=== PATIENT | female | born 1950 | race American Indian/Alaskan Native ===

== ENCOUNTER 2016-11-05 22:28 | Observation (INO) | payer MEDICARE, OTHER ==
[2016-11-05 22:42] VITALS: BMI 21.9
--- NOTE | 2016-11-05 23:21 | ED PDOC ---
Arrival/HPI - General Chief Complaint: Chest Pain Time Seen by Provider: 11/05/16 22:37 Historian: Patient - History of Present Illness Narrative History of Present Illness (Text): 11/05/16 23:17 Aidee Streeter is a 66 year old female with a history of COPD, hypertension, CAD with stents, osteoporosis, cholecystectomy, gastritis and degenerative joint disease, present to the emergency department via ambulance for evaluation of chest pain. En route patient was given baby aspirin for chest pain. Patient also had 1 episode of nbnb vomiting. Denies any fever, chills, headache, dizziness, shortness of breath, abdominal pain, diarrhea, or any other complaints at this time. Symptom Onset: Gradual Symptom Course: Unchanged Severity Level: Mild Activities at Onset: Light Past Medical History - Provider Review Nursing Documentation Reviewed: Yes - Infectious Disease Hx of Infectious Diseases: None - Tetanus Immunization Tetanus Immunization: Unknown - Cardiac Hx [place]: Yes (X2) - Pulmonary Hx Chronic Obstructive Pulmonary Disease (COPD): Yes Hx Sleep Apnea: Yes Other/Comment: Bi-pap at night - Neurological Hx Paralysis: No - HEENT Hx HEENT Disorder: No - Renal Hx Renal Disorder: No - Endocrine/Metabolic Hx Endocrine Disorders: No - Hematological/Oncological Hx Blood Transfusions: No - Integumentary Hx Dermatological Disorder: No - Musculoskeletal/Rheumatological Hx Arthritis: Yes Hx Unsteady Gait: Yes - Gastrointestinal Hx Gastrointestinal Disorders: No - Genitourinary/Gynecological Hx Genitourinary Disorders: No - Psychiatric Hx Emotional Abuse: No Hx Physical Abuse: No Hx Substance Use: No - Surgical History Hx Cardiac Catheterization: Yes (X1) - Anesthesia Hx Anesthesia: No Hx Anesthesia Reactions: No Hx Malignant Hyperthermia: No - Suicidal Assessment Feels Threatened In Home Enviroment: No Family/Social History - Physician Review Nursing Documentation Reviewed: Yes Family/Social History: No Known Family HX Smoking Status: Light Smoker < 10 Cigarettes Daily Hx Alcohol Use: No (RARE) Hx Substance Use: No Hx Substance Use Treatment: No Allergies/Home Meds Allergies/Adverse Reactions: Allergies oxycodone Allergy (Verified 03/11/16 09:34) DIZZINESS shellfish derived Allergy (Verified 03/11/16 09:34) ITCHING mri contrast Allergy (Severe, Uncoded 03/11/16 09:34) RASH DEVELOPES HIVES AND MAY FAINT Home Medications: Home Meds Medication Instructions Recorded Confirmed amLODIPine [Norvasc] 10 mg PO DAILY 12/20/14 11/05/16 Rosuvastatin Calcium [Crestor] 20 mg PO DAILY 11/05/16 11/05/16 Review of Systems - Physician Review All systems were reviewed & negative as marked: Yes - Review of Systems Constitutional: Normal. absent: Fatigue, Fevers Respiratory: Normal. absent: SOB, Cough, Sputum Cardiovascular: Chest Pain. absent: Palpitations Gastrointestinal: Nausea, Vomiting. absent: Diarrhea Genitourinary Female: Normal Neurological: Normal. absent: Headache, Dizziness Psychiatric: Normal Physical Exam Vital Signs Reviewed: Yes Vital Signs Temp Pulse Resp BP Pulse Ox 11/06/16 02:41 70 18 131/71 97 11/06/16 01:35 86 18 143/85 100 11/06/16 00:40 88 20 158/92 H 98 11/05/16 23:40 65 20 116/65 95 11/05/16 22:45 97.8 F 80 20 152/81 H 98 Temperature: Afebrile Blood Pressure: Normal Pulse: Regular Respiratory Rate: Normal Appearance: Positive for: Well-Appearing, Non-Toxic, Comfortable Pain Distress: None Mental Status: Positive for: Alert and Oriented X 3 - Systems Exam Head: Present: Atraumatic, Normocephalic Pupils: Present: PERRL Conjunctiva: Present: Normal Mouth: Present: Moist Mucous Membranes Respiratory/Chest: Present: Rhonchi. No: Respiratory Distress, Accessory Muscle Use Cardiovascular: Present: Regular Rate and Rhythm, Normal S1, S2. No: Murmurs Abdomen: Present: Normal Bowel Sounds. No: Tenderness, Distention, Peritoneal Signs Upper Extremity: Present: Normal Inspection. No: Cyanosis, Edema Lower Extremity: Present: Normal Inspection. No: Edema Neurological: Present: GCS=15, CN II-XII Intact, Speech Normal, Motor Func Grossly Intact, Normal Sensory Function Skin: Present: Warm, Dry, Normal Color. No: Rashes Psychiatric: Present: Alert, Oriented x 3, Normal Insight, Normal Concentration Medical Decision Making ED Course and Treatment: 11/05/16 23:22 Impression: A 66 year old female who presents to the emergency department complaining of chest pain, nausea and vomiting. Plan: -- EKG -- Labs, cardiac enzymes -- Chest X-ray -- Zofran -- Urinalysis -- Reassess and disposition Progress Notes: 11/05/16 23:22 EKG reviewed by me: Sinus Tachycardia @ 102 bpm. Septal infarct, age undetermined. 11/06/16 02:[address] Brown who is aware and agrees with the plan to observe patient at telemetry for chest pain. Accepts patient under his service. - Lab Interpretations Lab Results: 11/05/16 23:05 11/05/16 23:05 Lab Results 11/05/16 23:05: Sodium 142, Potassium 3.2 L, Chloride 109 H, Carbon Dioxide 23, Anion Gap 13, BUN 22 H, Creatinine 2.5 H, Est GFR ( Amer) 23, Est GFR ( Non-Af Amer) 19, Random Glucose 147 H, Calcium 8.9, Magnesium 1.9, Total Bilirubin 0.4, AST 29, ALT 22, Alkaline Phosphatase 70, Lactate Dehydrogenase 304 L, Total Creatine Kinase 116, Troponin I < 0.01, NT-Pro-B Natriuret Pep 151 , Total Protein 7.0, Albumin 3.6, Globulin 3.3, Albumin/Globulin Ratio 1.1 11/05/16 23:05: WBC 8.9 D, RBC 4.16, Hgb 11.1 L, Hct 34.7 L, MCV 83.4, MCH 26.7 , MCHC 32.0, RDW 14.6 H, Plt Count 252, MPV 9.3, Gran % 60.8, Lymph % (Auto) 33.3, Rankin % (Auto) 4.9, Eos % (Auto) 0.9 L, Baso % (Auto) 0.1, Gran # 5.42, Lymph # 3.0, Rankin # 0.4, Eos # 0.1, Baso # 0.01 I have reviewed the lab results: Yes - RAD Interpretation Radiology Orders: 11/05/16 23:01 CHEST PORTABLE [RAD] Stat - EKG Interpretation Interpreted by ED Physician: Yes Type: 12 lead EKG - Medication Orders Current Medication Orders: Discontinued Medications Albuterol/Ipratropium (Duoneb 3 Mg/0.5 Mg (3 Ml) Ud) 3 ml IH STAT STA Stop: 11/06/16 01:09 Last Admin: 11/06/16 01:35 Dose: 3 ml Albuterol/Ipratropium (Duoneb 3 Mg/0.5 Mg (3 Ml) Ud) 3 ml IH [id number] [facility] Last Admin: 11/07/16 14:11 Dose: Aspirin (Ecotrin) 325 mg PO DAILY [facility] Last Admin: 11/07/16 11:32 Dose: 325 mg Fentanyl (Fentanyl) Confirm Administered Dose 100 mcg .ROUTE .STK-MED ONE Stop: 11/07/16 10:20 Heparin Sodium (Porcine) (Heparin) 5,000 units SC Q8 [facility] PRN Reason: Protocol Last Admin: 11/07/16 13:54 Dose: Cefepime HCl (Maxipime 1gm) 1 gm in 100 mls @ 100 mls/hr IVPB Q24H [facility] PRN Reason: Protocol Last Admin: 11/07/16 07:53 Dose: 100 mls/hr Sodium Chloride (Sodium Chloride 0.9%) 1,000 mls @ 100 mls/hr IV .Q10H [facility] Last Admin: 11/07/16 11:30 Dose: 100 mls/hr Lidocaine (Lidocaine (Bolus)) Confirm Administered Dose 100 mg .ROUTE .STK-MED ONE Stop: 11/07/16 10:21 Metoprolol Tartrate (Lopressor) 25 mg PO BRKDIN [facility] Last Admin: 11/06/16 07:54 Dose: 25 mg Metoprolol Tartrate (Lopressor) 25 mg PO DAILY [facility] Last Admin: 11/07/16 11:31 Dose: 25 mg Nicotine (Nicoderm Cq) 1 patch TD DAILY [facility] Nicotine (Nicoderm Cq) 1 patch TD DAILY [facility] Last Admin: 11/07/16 11:31 Dose: 1 patch Ondansetron HCl (Zofran Inj) 4 mg IVP STAT STA Stop: 11/05/16 23:03 Last Admin: 11/05/16 23:17 Dose: 4 mg Ondansetron HCl (Zofran Inj) 4 mg IVP Q4H PRN PRN Reason: Nausea/Vomiting Pantoprazole Sodium (Protonix Ec Tab) 20 mg PO 0600 [facility] Stop: 11/10/16 06:01 Pantoprazole Sodium (Protonix Ec Tab) 40 mg PO 0600,1600 [facility] Last Admin: 11/07/16 05:51 Dose: 40 mg Potassium Chloride (K-Dur 20 Meq Er Tab) 40 meq PO STAT STA Stop: 11/06/16 02:43 Last Admin: 11/06/16 03:07 Dose: 40 meq Propofol (Diprivan) Confirm Administered Dose 200 mg .ROUTE .STK-MED ONE Stop: 11/07/16 10:20 - Scribe Statement The provider has reviewed the documentation as recorded by the Lorenibgina Xavier Provider Attestation: Provider Scribe Attestation: All medical record entries made by the Scribe were at my direction and personally dictated by me. I have reviewed the chart and agree that the record accurately reflects my personal performance of the history, physical exam, medical decision making, and the department course for this patient. I have also personally directed, reviewed, and agree with the discharge instructions and disposition. Disposition/Present on Arrival - Present on Arrival Any Indicators Present on Arrival: No History of DVT/PE: No History of Uncontrolled Diabetes: No Urinary Catheter: No History of Decub. Ulcer: No History Surgical Site Infection Following: None - Disposition Have Diagnosis and Disposition been Completed?: Yes Diagnosis: Chest pain, Chronic obstructive airway disease Disposition: HOSPITALIZED Disposition Time: 02:00 Condition: GOOD
[2016-11-05 23:30] LABS: ALB/GLOB RATIO 1.1 (1.1-1.8); ALBUMIN 3.6 g/dL (3.0-4.8); ALT/SGPT 22 U/L (7-56); AST/SGOT 29 U/L (15-39); BLOOD UREA NITROGEN 22 mg/dL (7-21); CALCIUM 8.9 mg/dL (8.4-10.5); GFR AFRICAN-AMERICAN 23; GFR NON-AFRICAN AMERICAN 19; MAGNESIUM 1.9 mg/dL (1.7-2.2)
[2016-11-05 23:41] LABS: B-TYPE NATRIURETIC PEPTIDE 151 pg/mL (0-450)
[2016-11-05 23:57] LABS: BASO # 0.01 K/mm3 (0.0-2.0); BASO % 0.1 % (0.0-3.0); EOS # 0.1 (0.0-0.7); EOS % 0.9 % (1.5-5.0); GRAN # 5.42 (1.4-6.5); GRAN % 60.8 % (50.0-68.0); HEMOGLOBIN 11.1 gm/dL (12.0-16.0); LYMPH % 33.3 % (22.0-35.0); MEAN CELL VOLUME 83.4 fL (80.0-105.0); MEAN CORPUSCULAR HEMOGLOBIN 26.7 pg (25.0-35.0); MEAN PLATELET VOLUME 9.3 fl (7.0-11.0); MONO # 0.4 (0.1-0.6); MONO % 4.9 % (1.0-6.0); PLATELET COUNT 252 10^3/uL (120.0-450.0); RBC 4.16 10^6/uL (3.5-6.1); RED CELL DISTRIBUTION WIDTH 14.6 % (11.5-14.5); WHITE BLOOD COUNT 8.9 10^3/ul (4.5-11.0)
[2016-11-06 00:12] LABS: TROPONIN I < 0.01 ng/mL
[2016-11-06] MEDS ORDERED: Albuterol-Ipratrop 3 mg / 0.5 (3 ml) UD IH STA (01:08)
[2016-11-06 02:30] LABS: PH,URINE 6.5 (4.7-8.0); URINE BILIRUBIN NEGATIVE (NEGATIVE); URINE BLOOD TRACE-INTACT (NEGATIVE); URINE GLUCOSE (UA) NEGATIVE (NEGATIVE); URINE LEUKOCYTE ESTERASE MODERATE Leu/uL (NEGATIVE); URINE NITRATE POSITIVE (NEGATIVE); URINE PROTEIN TRACE mg/dL (<30 mg/dL); URINE UROBILINOGEN 0.2 E.U./dL (<1 E.U./dL)
[2016-11-06 02:33] LABS: URINE APPEARANCE SL CLOUDY (CLEAR); URINE COLOR YELLOW (YELLOW)
[2016-11-06] MEDS ORDERED: Potassium Chloride 20 mEq ER Tab PO STA (02:42)
[2016-11-06 02:46] LABS: URINE BACTERIA MANY (NEG); URINE EPITHELIAL CELLS 0 - 2 /hpf (0-5); URINE RBC 0 - 2 /hpf (0-2); URINE WBC TNTC /hpf (0-6)
--- NOTE | 2016-11-06 05:15 | CP.PCM.HP ---
<Daniel Montaño - Last Filed: 11/06/16 05:17> History of Present Illness - History of Present Illness History of Present Illness: Daniel Montaño DO PGY-1 CC: Chest and Epigastric Pain HPI: Ms. Streeter is a 66 y/o AA female with a pertinent PMHx of HTN, CAD and HLD who presented with a complaint of epigastric pain radiating into her chest. Ms. Streeter stated that starting 11/04, she had a bout of nbnb emesis right after eating, after which she also experienced a throbbing epigastric pain of 8/ 10 intensity without radiation. On 11/05, Ms. Streeter had another bout of nbnb emesis right after eating at 7:30 PM, with the same throbbing epigastric pain, but this time it was of 10/10 intensity and radiated to her chest bilaterally. Ms Streeter stated that this had never happened before and that nothing at home made the pain better or worse. She was transported to the ED via EMS and was given ASA on the way. Ms. Streeter denied fevers, chills, diarrhea, change in appetite, and sob, but did admit to a cough. Ms. Streeter had no further complaints. PMHx: HTN, CAD, HLD, COPD, Thyroid Lumps, TANA, Osteoporosis, Osteoarthritis, Seizure Disorder, CKD, Right Middle Lobe Nodule PSHx: Stents, Cholecystectomy, Thyroid Bx, Hysterectomy Allergies: Oxycodone, Shellfish, MRI Contrast SocHx: Occasional EtOH; Heavy Tobacco; Denies illicits FamHx: Unavailable Meds: Non compliant Present on Admission - Present on Admission Any Indicators Present on Admission: No Review of Systems - Review of Systems Review of Systems: ROS: Constitutional: pt denies fever, chills, generalized weakness Head: pt denies lesions, headache ENT: pt denies dysphagia, ofalgia, hearing deficit, rhinorrhea Eyes: pt denies sudden loss of vision, diplopia, blurred vision MSK: pt denies joint pain, extremity cramping, muscle stiffness, muscle weakness Cardio: +pt admits b/l cp; pt denies sob, dvt Pulm: pt denies cough, hemoptysis, wheeze GI: +pt admits vomiting, epigastric pain; pt denies loss of appetite, constipation, melena, diarrhea : pt denies burning on urination, urinary frequency, hematuria, urinary urgency Neuro: pt denies paresis, paresthesia, dizziness, barnard, numbness, tingling Derm: pt denies skin changes, lesions, nail changes Endo: pt denies intolerance to heat/cold, diaphoresis, night sweats, polydipsia Psych: pt denies anxiety, depression, mood changes Past Patient History - Infectious Disease Hx of Infectious Diseases: None - Tetanus Immunizations Tetanus Immunization: Unknown - Past Social History Smoking Status: Light Smoker < 10 Cigarettes Daily - CARDIAC Hx Cardiac Disorders: Yes Hx Hypercholesterolemia: Yes Hx Hypertension: Yes - PULMONARY Hx Respiratory Disorders: Yes Hx Chronic Obstructive Pulmonary Disease (COPD): Yes Hx Sleep Apnea: Yes (CPAP HS) - NEUROLOGICAL Hx Neurological Disorder: Yes Hx Seizures: Yes - HEENT Hx HEENT Problems: No - RENAL Hx Chronic Kidney Disease: Yes - ENDOCRINE/METABOLIC Hx Endocrine Disorders: Yes (Thyroid nodules) - HEMATOLOGICAL/ONCOLOGICAL Hx Blood Disorders: Yes Hx Anemia: Yes - INTEGUMENTARY Hx Dermatological Problems: No - MUSCULOSKELETAL/RHEUMATOLOGICAL Hx Musculoskeletal Disorders: Yes Hx Degenerative Joint Disease: Yes Hx Falls: No Hx Osteoarthritis: Yes Hx Unsteady Gait: Yes - GASTROINTESTINAL Hx Gastrointestinal Disorders: Yes (gastritis, esophagitis) Hx Gastroesophageal Reflux: Yes - GENITOURINARY/GYNECOLOGICAL Hx Genitourinary Disorders: Yes Hx Incontinence: Yes Hx Urinary Tract Infection: Yes - PSYCHIATRIC Hx Psychophysiologic Disorder: No Hx Substance Use: No - SURGICAL HISTORY Hx Surgeries: Yes Hx Cardiac Catheterization: Yes Hx Cholecystectomy: Yes Hx Coronary Stent: Yes Hx Hysterectomy: Yes Hx Orthopedic Surgery: Yes (L shoulder surgery) Other/Comment: cyst removed from back - ANESTHESIA Hx Anesthesia: No Hx Anesthesia Reactions: No Hx Malignant Hyperthermia: No Meds Home Medications: Home Medication List Medication Instructions Recorded Confirmed Type Pantoprazole [Protonix EC Tab] 40 mg PO 0600,1600 #60 ect 11/07/16 Rx Allergies/Adverse Reactions: Allergies Allergy/AdvReac Type Severity Reaction Status Date / Time oxycodone Allergy DIZZINESS Verified 03/11/16 09:34 shellfish derived Allergy ITCHING Verified 03/11/16 09:34 mri contrast Allergy Severe RASH Uncoded 03/11/16 09:34 Physical Exam - Additional Findings Additional findings: Physical Exam: VS: As above Constitutional: well appearing female, a&o x 4, nad Head and Neck: +TTP around thyroid; thyroid nodules; no jvd, trachea midline, carotid midline, no cervical/head mass, no lesions Eyes: conrad, nonicteric sclera, eom intact ENT: auditory acuity grossly intact, throat not congested, no nasal deformity Cardio: rrr, no m/r/g, no carotid bruit, nml s1, s2 Pulm: +scattered wheezes; no accessory muscle use, equal nml breath sounds bilaterally, no RR Abd: s/nt/nd, nbs x 4 q, no palpable masses Derm: no rashes, no ulcers, no lesions Extr: no edema, no cyanosis, no calf tenderness, no lesions, no varicosities Neuro: cn II-XII grossly intact, ue and le 3+ muscle strength bilaterally, no los ue, le bilaterally and core Results - Vital Signs Recent Vital Signs: Last Vital Signs Temp 98.4 F 11/06/16 03:42 Pulse 57 L 11/06/16 05:01 Resp 18 11/06/16 04:42 BP 142/76 11/06/16 03:42 Pulse Ox 97 11/06/16 02:41 - Labs Result Diagrams: 11/05/16 23:05 11/05/16 23:05 Labs: Laboratory Results - last 24 hr 11/06/16 01:50 Urine Color Yellow Urine Appearance Sl cloudy Urine pH 6.5 Ur Specific Garretson 1.010 Urine Protein Trace H Urine Glucose (UA) Negative Urine Ketones Negative Urine Blood Trace-intact H Urine Nitrate Positive H Urine Bilirubin Negative Urine Urobilinogen 0.2 Ur Leukocyte Esterase Moderate H Urine RBC 0 - 2 Urine WBC Tntc Ur Epithelial Cells 0 - 2 Urine Bacteria Many Assessment & Plan - Assessment and Plan (Free Text) Assessment: A/P: Ms. Streeter is a 66 y/o AA female with a PMHx 1.) Chest pain, likely 2/2 radiation from abdomen - EKG shows sinus tachycardia and age indeterminate septal infarct - Patient denies sob - Trend tropes; Trope 1 negative - Trend CK-MB - CXR ordered 2.) Epigastric pain, possibly 2/2 Acute gastroenteritis VS Acute on Chronic Gastritis VS Acute on Chronic Esophagitis VS Hepatitis VS Pancreatitis VS PUD VS GERD VS SBO (unlikely) VS Unknown Etiology - Order Lipase - EGD, pending Dr. Brown's approval - Pt given Zofran in ED 3.) Hypokalemia likely 2/2 Emesis VS ODIN - K+ 3.2 - Cr 2.5 - Pt given 40 mEq in ED - Replace PRN 4.) Possible urinary tract infection - Pending urine cultures - Leukocyte Esterase Moderate - Urine Bacteria Many - Afebrile, VSS 5.) Hx/O Anemia - Hb 11.1, HCT 34.7 6.) Hx/O CKD - Cr 2.5 7.) DVT PPHXS - SCD 8.) GI PPHXS - Protonix <Chris Brown U - Last Filed: 11/21/16 09:56> Results - Vital Signs Recent Vital Signs: Last Vital Signs Temp 98.2 F 11/06/16 05:53 Pulse 74 11/06/16 05:53 Resp 19 11/06/16 05:53 BP 147/86 11/06/16 05:53 Pulse Ox 98 11/06/16 05:53 - Labs Result Diagrams: 11/07/16 08:20 11/07/16 08:20 Labs: Laboratory Results - last 24 hr 11/06/16 01:50 Urine Color Yellow Urine Appearance Sl cloudy Urine pH 6.5 Ur Specific Garretson 1.010 Urine Protein Trace H Urine Glucose (UA) Negative Urine Ketones Negative Urine Blood Trace-intact H Urine Nitrate Positive H Urine Bilirubin Negative Urine Urobilinogen 0.2 Ur Leukocyte Esterase Moderate H Urine RBC 0 - 2 Urine WBC Tntc Ur Epithelial Cells 0 - 2 Urine Bacteria Many Assessment & Plan - Assessment and Plan (Free Text) Assessment: PATIENT SEEN AND EXAMINED IN ROOM 275-2 RESIDENT'S H&P REVIEWED A/P: CP ETIOLOGY UNDETERMINED HX CAD, PCI ?GERD VS GASTRITIS HYPOKALEMIA CKD 4 HTN NICOTINE ADDICTION ANEMIA ?UTI WITH PROTEINURIA, PYURIA, HEMATURIA, BACTEURIA SINUS TACHYCARDIA HYPERGLYCEMIA PRE-DIABETES BRADYCARDIA THYROMEAGLY DIVERTICULOSIS COLON. CARDIO/GI EVAL PENDING. PLAN PER ORDERS. ALL DETAILS EXPLAINED TO PATIENT Attending/Attestation - Attestation I have personally seen and examined this patient.: Yes I have fully participated in the care of the patient.: Yes I have reviewed all pertinent clinical information: Yes
[2016-11-06] MEDS ORDERED: Pantoprazole 20 mg EC Tab PO SCH (06:00)
[2016-11-06] MEDS: Cefepime 1gm in NS 100ml 1 GM/100 ML BAG IVPB SCH (06:04)
[2016-11-06] MEDS: Pantoprazole 40 mg EC Tab PO SCH ×2 (06:09→17:26)
[2016-11-06 06:14] LABS: BASO # 0.01 K/mm3 (0.0-2.0); BASO % 0.1 % (0.0-3.0); EOS # 0.1 (0.0-0.7); EOS % 0.8 % (1.5-5.0); GRAN # 5.07 (1.4-6.5); GRAN % 58.2 % (50.0-68.0); HEMOGLOBIN 11.2 gm/dL (12.0-16.0); LYMPH # 3.2 (1.2-3.4); LYMPH % 36.8 % (22.0-35.0); MEAN CELL VOLUME 84.1 fL (80.0-105.0); MEAN CORPUSCULAR HEMOGLOBIN 26.5 pg (25.0-35.0); MEAN CORPUSCULAR HGB CONC 31.5 g/dl (31.0-37.0); MEAN PLATELET VOLUME 8.6 fl (7.0-11.0); MONO # 0.4 (0.1-0.6); MONO % 4.1 % (1.0-6.0); PLATELET COUNT 227 10^3/uL (120.0-450.0); RBC 4.22 10^6/uL (3.5-6.1); RED CELL DISTRIBUTION WIDTH 14.6 % (11.5-14.5); WHITE BLOOD COUNT 8.7 10^3/ul (4.5-11.0)
[2016-11-06 06:19] LABS: INR 1.01 (0.93-1.08); PARTIAL THROMBOPLASTIN TIME 29.5 Seconds (23.7-30.8); PROTHROMBIN TIME 10.9 Seconds (9.9-11.8)
[2016-11-06 06:37] LABS: ALB/GLOB RATIO 1.1 (1.1-1.8); ALBUMIN 3.6 g/dL (3.0-4.8)
[2016-11-06 06:39] LABS: D DIMER 0.35 mg/L FEU (0-0.50)
[2016-11-06 06:47] LABS: TROPONIN I 0.02 ng/mL
[2016-11-06 07:04] LABS: FREE T4 1.02 ng/dL (0.78-2.19); T4 6.6 ug/dL (5.5-11.0)
--- NOTE | 2016-11-06 07:41 | RAD ---
HISTORY: cp COMPARISON: 05/13/2016 FINDINGS: LUNGS: No active pulmonary disease. PLEURA: No significant pleural effusion identified, no pneumothorax apparent. CARDIOVASCULAR: Normal. OSSEOUS STRUCTURES: No significant abnormalities. VISUALIZED UPPER ABDOMEN: Normal. OTHER FINDINGS: None. IMPRESSION: No active disease.
[2016-11-06 07:55] LABS: BARBITURATES, UR NEGATIVE (NEGATIVE); BENZODIAZEPINES, UR NEGATIVE (NEGATIVE); OPIATES, UR NEGATIVE (NEGATIVE); PHENCYCLIDINE, UR NEGATIVE (NEGATIVE)
[2016-11-06] MEDS: Albuterol-Ipratrop 3 mg / 0.5 (3 ml) UD IH SCH ×3 (08:16→20:32)
--- NOTE | 2016-11-06 10:12 | CT ---
PROCEDURE: CT Chest, Abdomen and Pelvis without intravenous contrast HISTORY: ABD PAIN/?UTI COMPARISON: None. TECHNIQUE: Radiation dose: Total exam DLP = 413 mGy-cm. This CT exam was performed using one or more of the following dose reduction techniques: Automated exposure control, adjustment of the mA and/or kV according to patient size, and/or use of iterative reconstruction technique. FINDINGS: CT CHEST WITHOUT CONTRAST: LUNGS: Clear. No nodule, mass or consolidation. There is some linear atelectasis or scarring in both lung bases MEDIASTINUM: Unremarkable. Normal caliber aorta and pulmonary arterial trunk. Normal size heart. LYMPH NODES: Unremarkable. PLEURA: Unremarkable. No pneumothorax. No pleural fluid. BONES: Unremarkable. OTHER FINDINGS: There is diffuse enlargement of the thyroid CT ABDOMEN AND PELVIS: LIVER: Unremarkable. No gross lesion or ductal dilatation. GALLBLADDER AND BILE DUCTS: Gallbladder removed PANCREAS: Unremarkable. No gross lesion or ductal dilatation. SPLEEN: Unremarkable. ADRENALS: Unremarkable. No mass. KIDNEYS AND URETERS: Unremarkable. No hydronephrosis. No solid mass. VASCULATURE: Unremarkable. No aortic aneurysm. BOWEL: Unremarkable. No obstruction. No gross mural thickening. There is diverticulosis throughout the colon. APPENDIX: Normal appendix. PERITONEUM: Unremarkable. No free fluid. No free air. LYMPH NODES: Unremarkable. No enlarged lymph nodes. BLADDER: Unremarkable. REPRODUCTIVE: Unremarkable. BONES: No acute fracture. OTHER FINDINGS: None. IMPRESSION: Diffuse diverticulosis of the colon without evidence of diverticulitis. Moderate diffuse enlargement of the thyroid
[2016-11-06] MEDS: Aspirin 325 mg EC Tablets PO SCH (10:26)
--- NOTE | 2016-11-06 12:30 | CARD ---
APPROVED REPORT EKG Measurement Heart [id number] <Conclusion> Sinus bradycardia Otherwise normal ECG
--- NOTE | 2016-11-06 12:40 | CARD ---
APPROVED REPORT EKG Measurement Heart [id number] <Conclusion> Sinus tachycardia Septal infarct, age undetermined Abnormal ECG
[2016-11-06 13:22] LABS: TROPONIN I < 0.01 ng/mL
--- NOTE | 2016-11-06 19:35 | US ---
HISTORY: Leg pain and swelling. Evaluate for DVT PHYSICIAN(S): Vidal Jameson MD. TECHNIQUE: Duplex sonography and color-flow Doppler with graded compression were used to evaluate the deep venous systems of both lower extremities. FINDINGS: The visualized deep venous systems of both lower extremities are sonographically normal and compressible. Normal wave forms and augmentation are seen. There is no sonographic evidence for deep venous thrombosis in the visualized segments of both lower extremities. IMPRESSION: No sonographic evidence for deep venous thrombosis in the visualized segments of both lower extremities.
[2016-11-07] MEDS: Albuterol-Ipratrop 3 mg / 0.5 (3 ml) UD IH SCH ×3 (01:47→14:11)
[2016-11-07] MEDS: Pantoprazole 40 mg EC Tab PO SCH (05:51)
[2016-11-07] MEDS: Cefepime 1gm in NS 100ml 1 GM/100 ML BAG IVPB SCH (07:53)
[2016-11-07 08:41] LABS: BASO # 0.01 K/mm3 (0.0-2.0); BASO % 0.1 % (0.0-3.0); EOS # 0.1 (0.0-0.7); EOS % 0.6 % (1.5-5.0); GRAN # 4.67 (1.4-6.5); GRAN % 57.1 % (50.0-68.0); HEMOGLOBIN 11.2 gm/dL (12.0-16.0); LYMPH # 3.1 (1.2-3.4); LYMPH % 38.4 % (22.0-35.0); MEAN CELL VOLUME 84.9 fL (80.0-105.0); MEAN CORPUSCULAR HEMOGLOBIN 26.8 pg (25.0-35.0); MEAN CORPUSCULAR HGB CONC 31.5 g/dl (31.0-37.0); MONO # 0.3 (0.1-0.6); MONO % 3.8 % (1.0-6.0); PLATELET COUNT 218 10^3/uL (120.0-450.0); RBC 4.18 10^6/uL (3.5-6.1); RED CELL DISTRIBUTION WIDTH 14.6 % (11.5-14.5); WHITE BLOOD COUNT 8.2 10^3/ul (4.5-11.0)
[2016-11-07 09:04] VITALS: O2SAT 99
[2016-11-07 09:06] LABS: ALB/GLOB RATIO 1.1 (1.1-1.8); ALBUMIN 3.7 g/dL (3.0-4.8); BILIRUBIN,DIRECT 0.4 mg/dL (0.0-0.4); CALCIUM 9.1 mg/dL (8.4-10.5); MAGNESIUM 1.9 mg/dL (1.7-2.2); URIC ACID 3.9 mg/dL (2.5-6.2)
[2016-11-07] MEDS: Aspirin 325 mg EC Tablets PO SCH ×2 (09:32→11:32)
--- NOTE | 2016-11-07 09:32 | CP.PCM.PN ---
<Magdiel Duran - Last Filed: 11/07/16 13:28> Subjective - Date & Time of Evaluation Date of Evaluation: 11/07/16 Time of Evaluation: 07:45 - Subjective Subjective: Patient seen and examined at bedside. Patient was seen ambulating without overt difficulty. States that she has been experiencing productive cough for several months. Continues to experience epigastric discomfort which radiates bilaterally to her back at the T9 level. Offers no new complaints at this time. Denies fever, chills, dizziness, SOB, N/V, diarrhea, constipation, and urinary symptoms. Objective - Vital Signs/Intake and Output Vital Signs (last 24 hours): Temp Pulse Resp BP Pulse Ox 98.4 F 62 18 129/71 99 11/07/16 06:00 11/07/16 08:30 11/07/16 08:30 11/07/16 08:30 11/07/16 08:30 Intake and Output: 11/07/16 11/07/16 06:59 18:59 Intake Total 240 Output Total 0 Balance 240 - Medications Medications: Current Medications Albuterol/Ipratropium (Duoneb 3 Mg/0.5 Mg (3 Ml) Ud) 3 ml IH [id number] [facility] Last Admin: 11/07/16 07:44 Dose: 3 ml Aspirin (Ecotrin) 325 mg PO DAILY [facility] Last Admin: 11/06/16 10:26 Dose: 325 mg Heparin Sodium (Porcine) (Heparin) 5,000 units SC Q8 [facility] PRN Reason: Protocol Last Admin: 11/07/16 05:50 Dose: 5,000 units Cefepime HCl (Maxipime 1gm) 1 gm in 100 mls @ 100 mls/hr IVPB Q24H [facility] PRN Reason: Protocol Last Admin: 11/07/16 07:53 Dose: 100 mls/hr Metoprolol Tartrate (Lopressor) 25 mg PO DAILY [facility] Nicotine (Nicoderm Cq) 1 patch TD DAILY [facility] Last Admin: 11/06/16 10:27 Dose: 1 patch Ondansetron HCl (Zofran Inj) 4 mg IVP Q4H PRN PRN Reason: Nausea/Vomiting Pantoprazole Sodium (Protonix Ec Tab) 40 mg PO 0600,1600 [facility] Last Admin: 11/07/16 05:51 Dose: 40 mg - Labs Labs: 11/07/16 08:20 07/12/17 08:20 PT 10.9 Seconds (9.9-11.8) 11/06/16 06:00 INR 1.01 (0.93-1.08) 11/06/16 06:00 APTT 29.5 Seconds (23.7-30.8) 11/06/16 06:00 - Constitutional Appears: Non-toxic, No Acute Distress - Head Exam Head Exam: ATRAUMATIC - Eye Exam Eye Exam: EOMI Additional comments: sclera discoloration bilaterally, nonicteric bilaterally - Neck Exam Neck Exam: absent: Thyromegaly - Respiratory Exam Respiratory Exam: Clear to Ausculation Bilateral. absent: Rales, Rhonchi, Wheezes Additional comments: deep inspiration lead to cough - GI/Abdominal Exam GI & Abdominal Exam: Soft. absent: Distended, Guarding, Rigid, Rebound - Extremities Exam Extremities Exam: Normal Inspection. absent: Tenderness - Neurological Exam Neurological Exam: Alert, Awake, Oriented x3 Additional comments: patient is awake, alert, responds to verbal stimuli, follows commands, and moves extremities across midline - Psychiatric Exam Psychiatric exam: Normal Affect, Normal Mood - Skin Skin Exam: Normal Color, Warm Assessment and Plan - Assessment and Plan (Free Text) Assessment: Patient is a 66 year old female with PMHx of HTN, CAD and HLD who is undergoing hospital day # 2 under observation status for evaluation and treatment of epigastric pain radiating into her back. Plan: 1.) Epigastric discomfort with radiation to back 2/2 Acute gastroenteritis VS Acute on Chronic Gastritis VS Acute on Chronic Esophagitis VS Hepatitis VS Pancreatitis VS PUD VS GERD - GI is following, plan for EGD today - continue zofran, EKG reviewed QTCc 426 - rule out cardiac cause of pain, troponin trend- reviewed and negative - ECHO pending 2) HTN - continue metoprolol 3.) Hypokalemia likely 2/2 Emesis VS ODIN - repleted and resolved 4.) Hx/O Anemia - stable at baseline - monitor closely via CBC 6.) Hx/O CKD - Cr 2.6 - avoid nephrotoxins - monitor closely via BMP in AM 7.) PPX - heparin - PPI Patient will be discussed with attending, Dr. Brown. <Chris Brown - Last Filed: 11/21/16 09:58> Objective - Vital Signs/Intake and Output Vital Signs (last 24 hours): Temp Pulse Resp BP Pulse Ox 97 F L 64 19 128/81 99 11/07/16 11:36 11/07/16 11:36 11/07/16 11:36 11/07/16 11:36 11/07/16 11:08 - Labs Labs: 11/07/16 08:20 11/07/16 08:20 PT 10.9 Seconds (9.9-11.8) 11/06/16 06:00 INR 1.01 (0.93-1.08) 11/06/16 06:00 APTT 29.5 Seconds (23.7-30.8) 11/06/16 06:00 Assessment and Plan - Assessment and Plan (Free Text) Assessment: A/P: CP ETIOLOGY UNDETERMINED HX CAD, PCI ?GERD VS GASTRITIS HYPOKALEMIA CKD 4 HTN NICOTINE ADDICTION ANEMIA ?UTI WITH PROTEINURIA, PYURIA, HEMATURIA, BACTEURIA SINUS TACHYCARDIA HYPERGLYCEMIA PRE-DIABETES BRADYCARDIA THYROMEAGLY DIVERTICULOSIS COLON. Attending/Attestation - Attestation I have personally seen and examined this patient.: Yes I have fully participated in the care of the patient.: Yes I have reviewed all pertinent clinical information, including history, physical exam and plan: Yes
[2016-11-07] MEDS ORDERED: Propofol 10 mg/ml Inj (20 ML) ONE (10:19)
[2016-11-07] MEDS ORDERED: Sodium Chloride 0.9% 1,000 ML IV SCH (11:00)
[2016-11-07 11:33] VITALS: BP 128/81; PULSE 64
[2016-11-07 11:37] VITALS: RESP 19; TEMP 97
--- NOTE | 2016-11-07 13:31 | CP.PCM.DIS ---
<Magdiel Duran - Last Filed: 11/07/16 13:31> Provider - Provider Date of Admission: 11/06/16 01:21 Attending physician: Chris Brown MD Primary care physician: Oly Brown Time Spent in preparation of Discharge (in minutes): 30 Diagnosis - Discharge Diagnosis (1) Epigastric abdominal pain Status: Acute Priority: Medium (2) Hypertension Status: Acute Priority: Medium (3) Chronic kidney disease Status: Acute Priority: Medium Hospital Course - Lab Results Lab Results: Most Recent Lab Values WBC 8.2 10^3/ul (4.5-11.0) 11/07/16 08:20 RBC 4.18 10^6/uL (3.5-6.1) 11/07/16 08:20 Hgb 11.2 gm/dL (12.0-16.0) L 11/07/16 08:20 Hct 35.5 % (36.0-48.0) L 11/07/16 08:20 MCV 84.9 fL (80.0-105.0) 11/07/16 08:20 MCH 26.8 pg (25.0-35.0) 11/07/16 08:20 MCHC 31.5 g/dl (31.0-37.0) 11/07/16 08:20 RDW 14.6 % (11.5-14.5) H 11/07/16 08:20 Plt Count 218 10^3/uL (120.0-450.0) 11/07/16 08:20 MPV 9.0 fl (7.0-11.0) 11/07/16 08:20 Gran % 57.1 % (50.0-68.0) 11/07/16 08:20 Lymph % (Auto) 38.4 % (22.0-35.0) H 11/07/16 08:20 Gilliam % (Auto) 3.8 % (1.0-6.0) 11/07/16 08:20 Eos % (Auto) 0.6 % (1.5-5.0) L 11/07/16 08:20 Baso % (Auto) 0.1 % (0.0-3.0) 11/07/16 08:20 Gran # 4.67 (1.4-6.5) 11/07/16 08:20 Lymph # 3.1 (1.2-3.4) 11/07/16 08:20 Gilliam # 0.3 (0.1-0.6) 11/07/16 08:20 Eos # 0.1 (0.0-0.7) 11/07/16 08:20 Baso # 0.01 K/mm3 (0.0-2.0) 11/07/16 08:20 ESR 22 mm/hr (0.0-20.0) H 11/06/16 06:00 PT 10.9 Seconds (9.9-11.8) 11/06/16 06:00 INR 1.01 (0.93-1.08) 11/06/16 06:00 APTT 29.5 Seconds (23.7-30.8) 11/06/16 06:00 D-Dimer, Quantitative 0.35 mg/L FEU (0-0.50) 11/06/16 06:00 Sodium 142 mmol/L (132-148) 11/07/16 08:20 Potassium 4.4 mmol/L (3.6-5.0) 11/07/16 08:20 Chloride 110 mmol/L (98-107) H 11/07/16 08:20 Carbon Dioxide 24 mmol/L (21-33) 11/07/16 08:20 Anion Gap 12 (10-20) 11/07/16 08:20 BUN 23 mg/dL (7-21) H 11/07/16 08:20 Creatinine 2.9 mg/dL (0.5-1.4) H 11/07/16 08:20 Est GFR ( Amer) 20 11/07/16 08:20 Est GFR (Non-Af Amer) 16 11/07/16 08:20 Random Glucose 92 mg/dL (70-110) 11/07/16 08:20 Hemoglobin A1c 6.2 % (4.2-6.5) 11/06/16 06:00 Uric Acid 3.9 mg/dL (2.5-6.2) 11/07/16 08:20 Calcium 9.1 mg/dL (8.4-10.5) 11/07/16 08:20 Phosphorus 4.9 mg/dL (2.5-4.5) H 11/07/16 08:20 Magnesium 1.9 mg/dL (1.7-2.2) 11/07/16 08:20 Total Bilirubin 0.4 mg/dL (0.2-1.3) 11/07/16 08:20 Direct Bilirubin 0.4 mg/dL (0.0-0.4) 11/07/16 08:20 AST 27 U/L (15-39) 11/07/16 08:20 ALT 25 U/L (7-56) 11/07/16 08:20 Alkaline Phosphatase 73 U/L (38-133) 11/07/16 08:20 Lactate Dehydrogenase 304 U/L (333-699) L 11/05/16 23:05 Total Creatine Kinase 92 U/L (35-230) 11/06/16 12:40 Troponin I < 0.01 ng/mL D 11/06/16 12:40 NT-Pro-B Natriuret Pep 151 pg/mL (0-450) 11/05/16 23:05 Total Protein 7.2 g/dL (5.8-8.3) 11/07/16 08:20 Albumin 3.7 g/dL (3.0-4.8) 11/07/16 08:20 Globulin 3.4 gm/dL 11/07/16 08:20 Albumin/Globulin Ratio 1.1 (1.1-1.8) 11/07/16 08:20 Lipase 66 U/L (23-300) 11/06/16 06:00 25-OH Vitamin D Total 44.9 NG/ML (30.0-100.0) 11/06/16 06:00 Free T4 1.02 ng/dL (0.78-2.19) 11/06/16 06:00 Thyroxine (T4) 6.6 ug/dL (5.5-11.0) 11/06/16 06:00 TSH 3rd Generation 0.47 mIU/mL (0.46-4.68) 11/06/16 06:00 Urine Color Yellow (YELLOW) 11/06/16 01:50 Urine Appearance Sl cloudy (CLEAR) 11/06/16 01:50 Urine pH 6.5 (4.7-8.0) 11/06/16 01:50 Ur Specific Beggs 1.010 (1.005-1.035) 11/06/16 01:50 Urine Protein Trace mg/dL (<30 mg/dL) H 11/06/16 01:50 Urine Glucose (UA) Negative mg/dL (NEGATIVE) 11/06/16 01:50 Urine Ketones Negative mg/dL (NEGATIVE) 11/06/16 01:50 Urine Blood Trace-intact (NEGATIVE) H 11/06/16 01:50 Urine Nitrate Positive (NEGATIVE) H 11/06/16 01:50 Urine Bilirubin Negative (NEGATIVE) 11/06/16 01:50 Urine Urobilinogen 0.2 E.U./dL (<1 E.U./dL) 11/06/16 01:50 Ur Leukocyte Esterase Moderate Travis/uL (NEGATIVE) H 11/06/16 01:50 Urine RBC 0 - 2 /hpf (0-2) 11/06/16 01:50 Urine WBC Tntc /hpf (0-6) 11/06/16 01:50 Ur Epithelial Cells 0 - 2 /hpf (0-5) 11/06/16 01:50 Urine Bacteria Many (NEG) 11/06/16 01:50 Urine Opiates Screen Negative (NEGATIVE) 11/06/16 06:50 Urine Methadone Screen Negative (NEGATIVE) 11/06/16 06:50 Ur Barbiturates Screen Negative (NEGATIVE) 11/06/16 06:50 Ur Phencyclidine Scrn Negative (NEGATIVE) 11/06/16 06:50 Ur Amphetamines Screen Negative (NEGATIVE) 11/06/16 06:50 U Benzodiazepines Scrn Negative (NEGATIVE) 11/06/16 06:50 U Oth Cocaine Metabols Negative (NEGATIVE) 11/06/16 06:50 U Cannabinoids Screen Negative (NEGATIVE) 11/06/16 06:50 Alcohol, Quantitative < 10 mg/dL (0-10) 11/06/16 06:00 - Hospital Course Hospital Course: Please see today's progress note for further details. Patient is a 66 year old female with PMHx of HTN, CAD and HLD who was admitted under observation status for evaluation and treatment of epigastric pain radiating into her back. With the use of physical examinations, lab work, imaging, EGD, and the input of both cardiology and GI the patient was determined to be stable for discharge to home. Patient instructed to continue medications as prescribed . Patient instructed to visit primary care physician within one week for follow up. Patient instructed to come back to emergency room for evaluation of fever, chills, chest pain, SOB, abdominal pain, N/V, diarrhea, constipation, urinary symptoms, and any new or worsening symptoms. Discharge Exam - Head Exam Head Exam: ATRAUMATIC - Additional Findings Additional findings: - Constitutional Appears: Non-toxic, No Acute Distress - Head Exam Head Exam: ATRAUMATIC, NORMAL INSPECTION Additional comments: facial acne present moderate facial hair present predominantly along cheeks bilaterally - Eye Exam Eye Exam: EOMI. absent: Conjunctival injection Additional comments: exophthalamos bilaterally scleral discoloration bilaterally nonicteric - ENT Exam ENT Exam: Mucous Membranes Moist, Normal Exam - Neck Exam Additional comments: thyroid nodules palpated thyroid enlarged - Respiratory Exam Respiratory Exam: Clear to Auscultation Bilateral, NORMAL BREATHING PATTERN. absent: Accessory Muscle Use, Rales, Rhonchi, Wheezes - Cardiovascular Exam Cardiovascular Exam: REGULAR RHYTHM, +S1, +S2 - GI/Abdominal Exam GI & Abdominal Exam: Soft. absent: Rebound, Rigid, Tenderness - Extremities Exam Extremities exam: Positive for: normal inspection. Negative for: tenderness - Psychiatric Exam Psychiatric exam: Normal Affect, Normal Mood Additional comments: patient is awake, alert, responds to verbal stimuli, follows commands, and moves extremities past midline - Skin Additional comments: darkening of skin around neck Discharge Plan - Discharge Medications Prescriptions: Pantoprazole [Protonix EC Tab] 40 mg PO 0600,1600 #60 ect - Follow Up Plan Condition: GOOD Disposition: HOME/ ROUTINE Instructions: Nicotine (Absorbed through the skin), Pantoprazole (By mouth), Cardiac Stress Test (GEN), How to Stop Smoking (GEN), Hiatal Hernia (GEN), Renal Failure Diet (DC), Heart Healthy Diet (GEN), Cigarette Smoking and Your Health (GEN), Cholesterol and Your Health (GEN), Acute Abdominal Pain (GEN) Additional Instructions: DISCHARGE HOME AFTER CAT SCAN CHEST AND NECK FOLLOW UP WITHIN 1 WEEK FOLLOW UP FOR OUTPATIENT STRESS TEST - scheduled for November 15, 2016. FOLLOW UP ENT FOR PROMINENT ARETYNOID STOP SMOKING HEART HEALTHY RENAL NON DIALYSIS DIET COPY TO PATIENT UPON DISCHARGE. If condition occurs again, go to the nearest emergency room. Patient states she always refuses flu and pneumococcal vaccines. Referrals: Chris Brown MD [Staff Provider] - 1 Week (DISCHARGE HOME AFTER CAT SCAN CHEST AND NECK FOLLOW UP WITHIN 1 WEEK FOLLOW UP FOR OUTPATIENT STRESS TEST FOLLOW UP ENT FOR PROMINENT ARETYNOID STOP SMOKING HEART HEALTHY RENAL NON DIALYSIS DIET COPY TO PATIENT UPON DISCHARGE.) Milton Gorman DO [Staff Provider] - 1 Week (DISCHARGE HOME AFTER CAT SCAN CHEST AND NECK FOLLOW UP WITHIN 1 WEEK FOLLOW UP FOR OUTPATIENT STRESS TEST FOLLOW UP ENT FOR PROMINENT ARETYNOID STOP SMOKING HEART HEALTHY RENAL NON DIALYSIS DIET COPY TO PATIENT UPON DISCHARGE.) Vidal Mas MD [Staff Provider] - 1 Week (DISCHARGE HOME AFTER CAT SCAN CHEST AND NECK FOLLOW UP WITHIN 1 WEEK FOLLOW UP FOR OUTPATIENT STRESS TEST FOLLOW UP ENT FOR PROMINENT ARETYNOID STOP SMOKING HEART HEALTHY RENAL NON DIALYSIS DIET COPY TO PATIENT UPON DISCHARGE.) <Chris Brown - Last Filed: 11/21/16 09:59> Provider - Provider Date of Admission: 11/06/16 01:21 Attending physician: Chris Brown MD Primary care physician: Oly Brown Time Spent in preparation of Discharge (in minutes): 45 Hospital Course - Lab Results Lab Results: Most Recent Lab Values WBC 8.2 10^3/ul (4.5-11.0) 11/07/16 08:20 RBC 4.18 10^6/uL (3.5-6.1) 11/07/16 08:20 Hgb 11.2 gm/dL (12.0-16.0) L 11/07/16 08:20 Hct 35.5 % (36.0-48.0) L 11/07/16 08:20 MCV 84.9 fL (80.0-105.0) 11/07/16 08:20 MCH 26.8 pg (25.0-35.0) 11/07/16 08:20 MCHC 31.5 g/dl (31.0-37.0) 11/07/16 08:20 RDW 14.6 % (11.5-14.5) H 11/07/16 08:20 Plt Count 218 10^3/uL (120.0-450.0) 11/07/16 08:20 MPV 9.0 fl (7.0-11.0) 11/07/16 08:20 Gran % 57.1 % (50.0-68.0) 11/07/16 08:20 Lymph % (Auto) 38.4 % (22.0-35.0) H 11/07/16 08:20 Gilliam % (Auto) 3.8 % (1.0-6.0) 11/07/16 08:20 Eos % (Auto) 0.6 % (1.5-5.0) L 11/07/16 08:20 Baso % (Auto) 0.1 % (0.0-3.0) 11/07/16 08:20 Gran # 4.67 (1.4-6.5) 11/07/16 08:20 Lymph # 3.1 (1.2-3.4) 11/07/16 08:20 Gilliam # 0.3 (0.1-0.6) 11/07/16 08:20 Eos # 0.1 (0.0-0.7) 11/07/16 08:20 Baso # 0.01 K/mm3 (0.0-2.0) 11/07/16 08:20 ESR 22 mm/hr (0.0-20.0) H 11/06/16 06:00 PT 10.9 Seconds (9.9-11.8) 11/06/16 06:00 INR 1.01 (0.93-1.08) 11/06/16 06:00 APTT 29.5 Seconds (23.7-30.8) 11/06/16 06:00 D-Dimer, Quantitative 0.35 mg/L FEU (0-0.50) 11/06/16 06:00 Sodium 142 mmol/L (132-148) 11/07/16 08:20 Potassium 4.4 mmol/L (3.6-5.0) 11/07/16 08:20 Chloride 110 mmol/L (98-107) H 11/07/16 08:20 Carbon Dioxide 24 mmol/L (21-33) 11/07/16 08:20 Anion Gap 12 (10-20) 11/07/16 08:20 BUN 23 mg/dL (7-21) H 11/07/16 08:20 Creatinine 2.9 mg/dL (0.5-1.4) H 11/07/16 08:20 Est GFR ( Amer) 20 11/07/16 08:20 Est GFR (Non-Af Amer) 16 11/07/16 08:20 Random Glucose 92 mg/dL (70-110) 11/07/16 08:20 Hemoglobin A1c 6.2 % (4.2-6.5) 11/06/16 06:00 Uric Acid 3.9 mg/dL (2.5-6.2) 11/07/16 08:20 Calcium 9.1 mg/dL (8.4-10.5) 11/07/16 08:20 Phosphorus 4.9 mg/dL (2.5-4.5) H 11/07/16 08:20 Magnesium 1.9 mg/dL (1.7-2.2) 11/07/16 08:20 Total Bilirubin 0.4 mg/dL (0.2-1.3) 11/07/16 08:20 Direct Bilirubin 0.4 mg/dL (0.0-0.4) 11/07/16 08:20 AST 27 U/L (15-39) 11/07/16 08:20 ALT 25 U/L (7-56) 11/07/16 08:20 Alkaline Phosphatase 73 U/L (38-133) 11/07/16 08:20 Lactate Dehydrogenase 304 U/L (333-699) L 11/05/16 23:05 Total Creatine Kinase 92 U/L (35-230) 11/06/16 12:40 Troponin I < 0.01 ng/mL D 11/06/16 12:40 NT-Pro-B Natriuret Pep 151 pg/mL (0-450) 11/05/16 23:05 Total Protein 7.2 g/dL (5.8-8.3) 11/07/16 08:20 Albumin 3.7 g/dL (3.0-4.8) 11/07/16 08:20 Globulin 3.4 gm/dL 11/07/16 08:20 Albumin/Globulin Ratio 1.1 (1.1-1.8) 11/07/16 08:20 Lipase 66 U/L (23-300) 11/06/16 06:00 25-OH Vitamin D Total 44.9 NG/ML (30.0-100.0) 11/06/16 06:00 Free T4 1.02 ng/dL (0.78-2.19) 11/06/16 06:00 Thyroxine (T4) 6.6 ug/dL (5.5-11.0) 11/06/16 06:00 TSH 3rd Generation 0.47 mIU/mL (0.46-4.68) 11/06/16 06:00 Urine Color Yellow (YELLOW) 11/06/16 01:50 Urine Appearance Sl cloudy (CLEAR) 11/06/16 01:50 Urine pH 6.5 (4.7-8.0) 11/06/16 01:50 Ur Specific Beggs 1.010 (1.005-1.035) 11/06/16 01:50 Urine Protein Trace mg/dL (<30 mg/dL) H 11/06/16 01:50 Urine Glucose (UA) Negative mg/dL (NEGATIVE) 11/06/16 01:50 Urine Ketones Negative mg/dL (NEGATIVE) 11/06/16 01:50 Urine Blood Trace-intact (NEGATIVE) H 11/06/16 01:50 Urine Nitrate Positive (NEGATIVE) H 11/06/16 01:50 Urine Bilirubin Negative (NEGATIVE) 11/06/16 01:50 Urine Urobilinogen 0.2 E.U./dL (<1 E.U./dL) 11/06/16 01:50 Ur Leukocyte Esterase Moderate Travis/uL (NEGATIVE) H 11/06/16 01:50 Urine RBC 0 - 2 /hpf (0-2) 11/06/16 01:50 Urine WBC Tntc /hpf (0-6) 11/06/16 01:50 Ur Epithelial Cells 0 - 2 /hpf (0-5) 11/06/16 01:50 Urine Bacteria Many (NEG) 11/06/16 01:50 Urine Opiates Screen Negative (NEGATIVE) 11/06/16 06:50 Urine Methadone Screen Negative (NEGATIVE) 11/06/16 06:50 Ur Barbiturates Screen Negative (NEGATIVE) 11/06/16 06:50 Ur Phencyclidine Scrn Negative (NEGATIVE) 11/06/16 06:50 Ur Amphetamines Screen Negative (NEGATIVE) 11/06/16 06:50 U Benzodiazepines Scrn Negative (NEGATIVE) 11/06/16 06:50 U Oth Cocaine Metabols Negative (NEGATIVE) 11/06/16 06:50 U Cannabinoids Screen Negative (NEGATIVE) 11/06/16 06:50 Alcohol, Quantitative < 10 mg/dL (0-10) 11/06/16 06:00 Discharge Exam - Additional Findings Additional findings: Assessment & Plan - Assessment and Plan (Free Text) Assessment: PATIENT SEEN AND EXAMINED IN ROOM 275-2 RESIDENT'S NOTES REVIEWED FINAL PROGRESS NOTE AND DISCHARGE DIAGNOSES: CP ETIOLOGY UNDETERMINED HX CAD, PCI ?GERD VS GASTRITIS HYPOKALEMIA CKD 4 HTN NICOTINE ADDICTION ANEMIA ?UTI WITH PROTEINURIA, PYURIA, HEMATURIA, BACTEURIA SINUS TACHYCARDIA HYPERGLYCEMIA PRE-DIABETES BRADYCARDIA THYROMEAGLY DIVERTICULOSIS COLON. S/P EGD PROMINENCE/HYPERPIGMENTATION RIGHT ARYTENOID HIATAL HERNIA THYROMEAGLY RIGHT THYROID NODULE BIBASILAR PATCHY ILFILTRATES. BILATERAL UPPER LOBES EMPHYSEMA. CARDIO/GI EVAL NOTED. AND GI PLAN PER ORDERS. ALL DETAILS EXPLAINED TO PATIENT PATIENT CLEARED FOR DISCHARGE BY CARDIOLOGY AND GI. OUTPATIENT STRESS TEST WITH NEXT WEEK OUTPATIENT ENT EVAL SMOKING CESSATION. FOLLOW UP WITHIN 1 WEEK START PROTONIX 40MG BID X 2 WEEKS THEN ONCE DAILY. ECHO AND CAT SCAN NECK AND CHEST PENDING. Attending/Attestation - Attestation I have personally seen and examined this patient.: Yes I have fully participated in the care of the patient.: Yes I have reviewed all pertinent clinical information, including history, physical exam and plan: Yes
--- NOTE | 2016-11-07 14:54 | CT ---
PROCEDURE: CT Neck, Chest, without contrast HISTORY: prominent ARETYNOID/SMOKER COMPARISON: None. TECHNIQUE: Contrast dose: Radiation dose: Total exam DLP = 992 mGy-cm. This CT exam was performed using one or more of the following dose reduction techniques: Automated exposure control, adjustment of the mA and/or kV according to patient size, and/or use of iterative reconstruction technique. FINDINGS: CT OF THE NECK: PHARYNX: Nasopharynx: Unremarkable. Oropharnx: Unremarkable. Hypopharynx: Unremarkable. LYMPH NODES: Unremarkable. VASCULATURE: Unremarkable. GLANDS: The thyroid is enlarged. Age lobe of the thyroid measures 3 x 4 cm in size. There is a calcified 1.5 cm nodule in the right thyroid CERVICAL SPINE: Unremarkable. CT OF THE CHEST: LUNGS: Minimal patchy infiltrates are seen at the lung bases posteriorly. These are unchanged. Emphysematous changes are seen in the upper lobes MEDIASTINUM: Unremarkable thoracic aorta. No aneurysm or dissection. Normal sized heart. Pulmonary arterial truck unremarkable. No vascular congestion. No lymphadenopathy. PLEURA: No pleural fluid. No pneumothorax. BONES: No fracture. No destructive lesion. IMPRESSION: Enlarged thyroid. Minimal bibasilar infiltrates. Mild emphysematous changes
--- NOTE | 2016-11-07 16:39 | CARD ---
APPROVED REPORT EKG Measurement Heart [id number] <Conclusion> Sinus bradycardia Otherwise normal ECG
--- NOTE | 2016-11-08 13:11 | CP.PCM.CON ---
History of Present Illness - History of Present Illness History of Present Illness: The patient is a 66 y/o woman who presents with dyspnea and epigastric discomfort. Review of Systems - Hematologic/Lymphatic Additional comments: 14 point ROS reviewed. No cardiac symptomatology noted. Past Patient History - Infectious Disease Hx of Infectious Diseases: None - Tetanus Immunizations Tetanus Immunization: Unknown - Past Social History Smoking Status: Light Smoker < 10 Cigarettes Daily - CARDIAC Hx Hypercholesterolemia: Yes Hx Hypertension: Yes Other/Comment: She denies any previous cardiac hx. - PULMONARY Hx Respiratory Disorders: Yes Hx Chronic Obstructive Pulmonary Disease (COPD): Yes Hx Sleep Apnea: Yes (CPAP HS) - NEUROLOGICAL Hx Neurological Disorder: Yes Hx Seizures: Yes - HEENT Hx HEENT Problems: No - RENAL Hx Chronic Kidney Disease: Yes - ENDOCRINE/METABOLIC Hx Endocrine Disorders: Yes (Thyroid nodules) - HEMATOLOGICAL/ONCOLOGICAL Hx Blood Disorders: Yes Hx Anemia: Yes - INTEGUMENTARY Hx Dermatological Problems: No - MUSCULOSKELETAL/RHEUMATOLOGICAL Hx Musculoskeletal Disorders: Yes Hx Degenerative Joint Disease: Yes Hx Falls: No Hx Osteoarthritis: Yes Hx Unsteady Gait: Yes - GASTROINTESTINAL Hx Gastrointestinal Disorders: Yes (gastritis, esophagitis) Hx Gastroesophageal Reflux: Yes - GENITOURINARY/GYNECOLOGICAL Hx Genitourinary Disorders: Yes Hx Incontinence: Yes Hx Urinary Tract Infection: Yes - PSYCHIATRIC Hx Psychophysiologic Disorder: No Hx Substance Use: No - SURGICAL HISTORY Hx Surgeries: Yes Hx Cardiac Catheterization: Yes Hx Cholecystectomy: Yes Hx Coronary Stent: Yes Hx Hysterectomy: Yes Hx Orthopedic Surgery: Yes (L shoulder surgery) Other/Comment: cyst removed from back - ANESTHESIA Hx Anesthesia: No Hx Anesthesia Reactions: No Hx Malignant Hyperthermia: No Meds Home Medications: Home Medication List Medication Instructions Recorded Confirmed Type Nicotine 21 mg/24 hr [Nicoderm Cq] 1 patch TD DAILY #30 patch 11/07/16 Rx Pantoprazole [Protonix EC Tab] 40 mg PO 0600,1600 #60 ect 11/07/16 Rx Allergies/Adverse Reactions: Allergies Allergy/AdvReac Type Severity Reaction Status Date / Time oxycodone Allergy DIZZINESS Verified 03/11/16 09:34 shellfish derived Allergy ITCHING Verified 03/11/16 09:34 mri contrast Allergy Severe RASH Uncoded 03/11/16 09:34 Physical Exam - Constitutional Appears: Well - ENT Exam ENT Exam: Mucous Membranes Dry, Mucous Membranes Moist, Normal Exam, Normal External Ear Exam, Normal Oropharynx, TM's Normal Bilaterally - Neck Exam Additional comments: No JVD - Respiratory Exam Respiratory Exam: Clear to Auscultation Bilateral Additional comments: No rales. - Cardiovascular Exam Cardiovascular Exam: +S1, +S2 Additional comments: Normal Sinus Rhythm - GI/Abdominal Exam GI & Abdominal Exam: absent: Tenderness - Extremities Exam Extremities exam: Positive for: normal inspection Additional comments: No edema Results - Vital Signs Recent Vital Signs: Last Vital Signs Temp 97 F L 11/07/16 11:36 Pulse 50's 11/07/16 11:36 Resp 19 11/07/16 11:36 BP 116/57 11/07/16 11:36 Pulse Ox 99 11/07/16 11:08 - Labs Result Diagrams: 11/07/16 08:20 11/07/16 08:20 Labs: BUN: 22, Cr: 2.6 Troponins: Negative x 2 - EKG Data EKG shows normal: Sinus rhythm, ST-T waves (Diffuse ST-T changes) Rate: Bradycardia Assessment & Plan - Assessment and Plan (Free Text) Assessment: Impression: 1. Atypical chest pain 2. No evidence for acute coronary syndrome 3. Renal Insufficiency 4. HTN 5. Hypercholesterolemia 6. COPD Plan: Given these findings, we will follow serial troponins. Echocardiogram reveals good LV function with LVH. I have discussed with the pt about the need to stop smoking. Will arrange for an outpatient stress test once her tests are all in.
--- NOTE | 2016-11-19 12:49 | CARD ---
APPROVED REPORT EXAM: Two-dimensional and M-mode echocardiogram with Doppler and color Doppler. INDICATION Hypertension/HCVD Chest Pain 2D DIMENSIONS Left Atrium (2D)3.0 (1.6-4.0cm)IVSd1.1 (0.7-1.1cm) LVDd4.2 (3.9-5.9cm)PWd1.0 (0.7-1.1cm) LVDs2.7 (2.5-4.0cm)FS (%) 35.3 % LVEF (%)65.0 (>50%) M-Mode DIMENSIONS Aortic Root2.40 (2.2-3.7cm)Aortic Cusp Exc.1.60 (1.5-2.0cm) Aortic Valve AoV Peak Xfxvqkgb973.0cm/Padma Peak GR.7mmHg Mitral Valve MV E Ebvxxnbe89.8cm/sMV A Wovpokhn393.0cm/sE/A ratio0.8 TDI E/Lateral E'0.0E/Medial E'0.0 Tricuspid Valve TR Peak Dfnxsywt251bl/sRAP [id number] Peak Gr.24mmHg [id number] LEFT VENTRICLE The left ventricular function is normal. The left ventricular ejection fraction is within the normal range. RIGHT VENTRICLE The right ventricle is normal size. ATRIA The left atrium size is normal. The right atrium size is normal. AORTIC VALVE The aortic valve is thickened but opens well. MITRAL VALVE The mitral valve is thickened but opens well. TRICUSPID VALVE The tricuspid valve leaflets are thickened , but open well. There is trace tricuspid regurgitation. There is no pulmonary hypertension. PULMONIC VALVE The pulmonic valve is not well visualized. PERICARDIAL EFFUSION There is no pericardial effusion. <Conclusion> Good LV function Trace TR No pulmonary hypertension
== END 2016-11-07 14:54 | disposition home or self-care (01) ==
LOC: ED 22:28 → ERH 11-06 01:21 → 2RSO 11-06 03:16
PROVIDERS: ADMIT Internal Medicine; ATTEND Internal Medicine
DX: R07.89 Other chest pain (principal); R10.13 Epigastric pain; I12.9 Hypertensive chronic kidney disease with stage 1 through stage 4 chronic kidney disease, or unspecified chronic kidney disease; N18.4 Chronic kidney disease, stage 4 (severe); R73.03 Prediabetes; N39.0 Urinary tract infection, site not specified; D64.9 Anemia, unspecified; E78.00 Pure hypercholesterolemia, unspecified; E78.5 Hyperlipidemia, unspecified; E87.6 Hypokalemia; G40.909 Epilepsy, unspecified, not intractable, without status epilepticus; G47.33 Obstructive sleep apnea (adult) (pediatric); I25.10 Atherosclerotic heart disease of native coronary artery without angina pectoris; I25.2 Old myocardial infarction; J44.9 Chronic obstructive pulmonary disease, unspecified; K21.9 Gastro-esophageal reflux disease without esophagitis; K44.9 Diaphragmatic hernia without obstruction or gangrene; K57.90 Diverticulosis of intestine, part unspecified, without perforation or abscess without bleeding; M81.0 Age-related osteoporosis without current pathological fracture; Z79.899 Other long term (current) drug therapy; Z87.440 Personal history of urinary (tract) infections; Z90.49 Acquired absence of other specified parts of digestive tract; Z90.710 Acquired absence of both cervix and uterus; Z95.5 Presence of coronary angioplasty implant and graft; M19.90 Unspecified osteoarthritis, unspecified site; F17.210 Nicotine dependence, cigarettes, uncomplicated; E04.1 Nontoxic single thyroid nodule; K20.9 Esophagitis, unspecified; R26.81 Unsteadiness on feet; R32 Unspecified urinary incontinence; Z91.041 Radiographic dye allergy status; Z88.5 Allergy status to narcotic agent; Z91.013 Allergy to seafood; R91.1 Solitary pulmonary nodule; K52.9 Noninfective gastroenteritis and colitis, unspecified; K29.50 Unspecified chronic gastritis without bleeding
CPT/HCPCS: 36415; 43235; 70490; 71010; 71250; 74176; 80053; 81001; 82248; 82306; 82550; 83036; 83615; 83690; 83735; 83880; 84100; 84439; 84443; 84484; 84550; 85025; 85378; 85610; 85651; 85730; 87086; 87181; 93005; 93306; 93970; 94640; 94760; 96365; 96366; 96372; 96375; 99285; G0378; G0480; J0692; J1644; J2001; J2405; J2704; J3010; J7040

== ENCOUNTER 2016-12-05 15:49 | Inpatient (IN) | payer MEDICARE, OTHER ==
[2016-12-05 15:52] VITALS: BMI 29.9
--- NOTE | 2016-12-05 15:58 | ED PDOC ---
Arrival/HPI - General Time Seen by Provider: 12/05/16 15:51 - History of Present Illness Narrative History of Present Illness (Text): 12/05/16 20:49 66 y.o. female with history of HTN, CAD, seizures, and chronic renal insufficiency who according to her daughter, around 3:20 pm she became unable to speak at all; EMS was called and they noted her right side to be weak as well. Upon presentation, patient is unable to speak or add any history. Past Medical History - Infectious Disease Hx of Infectious Diseases: None - Tetanus Immunization Tetanus Immunization: Unknown - Cardiac Hx Pacemaker: No - Pulmonary Hx Chronic Obstructive Pulmonary Disease (COPD): Yes - Neurological Hx Paralysis: No - HEENT Hx HEENT Disorder: No - Renal Hx Renal Disorder: No - Endocrine/Metabolic Hx Endocrine Disorders: No - Hematological/Oncological Hx Blood Transfusions: No - Integumentary Hx Dermatological Disorder: No - Musculoskeletal/Rheumatological Hx Musculoskeletal Disorders: Yes - Gastrointestinal Hx Gastrointestinal Disorders: No - Genitourinary/Gynecological Hx Genitourinary Disorders: No - Psychiatric Hx Emotional Abuse: No Hx Physical Abuse: No Hx Substance Use: No - Surgical History Hx Cardiac Catheterization: Yes - Anesthesia Hx Anesthesia Reactions: No Hx Malignant Hyperthermia: No - Suicidal Assessment Feels Threatened In Home Enviroment: No Family/Social History - Physician Review Nursing Documentation Reviewed: Yes Family/Social History: Unknown Family HX Smoking Status: Light Smoker < 10 Cigarettes Daily Hx Alcohol Use: No (RARE) Hx Substance Use: No Hx Substance Use Treatment: No Allergies/Home Meds Allergies/Adverse Reactions: Allergies oxycodone Allergy (Severe, Verified 12/05/16 15:52) DIZZINESS mri contrast Allergy (Severe, Uncoded 12/05/16 15:52) RASH DEVELOPES HIVES AND MAY FAINT Home Medications: Home Meds Medication Instructions Recorded Confirmed amLODIPine [Norvasc] 10 mg PO DAILY 12/20/14 12/05/16 Rosuvastatin Calcium [Crestor] 20 mg PO DAILY 11/05/16 12/05/16 Aspirin [Adult Low Dose Aspirin EC] 81 mg PO DAILY 11/15/16 12/05/16 Review of Systems - Review of Systems Systems not reviewed;Unavailable: Other (patient is aphasic) Physical Exam Vital Signs Temp Pulse Resp BP Pulse Ox 12/05/16 17:52 71 18 126/81 100 12/05/16 16:21 95 H 20 142/60 100 12/05/16 16:16 98.9 F 12/05/16 16:11 76 15 147/79 96 Temperature: Afebrile Blood Pressure: Normal Pulse: Regular Respiratory Rate: Normal Appearance: Positive for: Other (anxious appearing, unable to speak, aphasic) Pain Distress: None Mental Status: Positive for: other (unable to speak, awake and alert) - Systems Exam Head: Present: Atraumatic, Normocephalic Pupils: Present: PERRL Extroacular Muscles: Present: EOMI Conjunctiva: Present: Normal Mouth: Present: Moist Mucous Membranes Pharnyx: Present: Normal. No: ERYTHEMA, EXUDATE Neck: Present: Normal Range of Motion Respiratory/Chest: Present: Clear to Auscultation, Good Air Exchange. No: Respiratory Distress, Accessory Muscle Use Cardiovascular: Present: Regular Rate and Rhythm, Normal S1, S2. No: Murmurs Abdomen: Present: Normal Bowel Sounds. No: Tenderness, Distention, Peritoneal Signs Back: Present: Normal Inspection Upper Extremity: Present: Normal Inspection. No: Cyanosis, Edema Lower Extremity: Present: Normal Inspection. No: Edema Neurological: Present: GCS=15, CN II-XII Intact. No: Speech Normal, Motor Func Grossly Intact (initial drift of R leg before 5 seconds resolved) Skin: Present: Warm, Dry, Normal Color. No: Rashes Psychiatric: Present: Alert Medical Decision Making ED Course and Treatment: 66 y.o. female presenting with aphasia and R side weakness; [facility] called upon arrival. Differential: CVA sv TIA Plan: Per [facility] Stroke Protocol EKG: NSR @ 76; normal intervals; normal axis; nonspecific T wave changes; no ST changes Initial NIHSS was 5; CT brain was negative for any hemorrhage; case was discussed with Dr. Perez, on-call neurology, who said to administer TPA to the patient. The patient's speech continued to be significantly impaired, and the right leg weakness fully resolved. NIHSS was still 4, still a candidate for tpa. TPA administration with benefits and risks were fully discussed with the patient, her son, and other family members, and they said to have it administered. However immediately before tpa administration, the patient's speech fully normalized so that here repeat NIHSS was zero. She was then not a tpa candidate due to the rapid improvement of her symptoms and normal NIHSS. TPA was then held. Patient was initally going to be admitted to the ICU and was then downgraded to [facility]. Case had been discussed with Dr. Brown. 12/05/16 18:24: Patient complained of R facial numbness and there appeared to be a mild intermittent R facial droop. Speech continued to be completely normal. Case rediscussed with Dr. Perez. He recommends 2g of magnesium sulfate, bolus of IV Fluid and MRA of the head and neck. He also recommends asa and 300 mg of plavix. 12/05/16 20:55 Patient returned from MRI; she asymptomatic at this time with no neurologic deficits; it appears more as a TIA at this time. MRI results are pending at this time. - Critical Care Critical Care Minutes: 60 minutes - Lab Interpretations Lab Results: 12/05/16 16:30 12/05/16 16:30 Lab Results 12/05/16 16:30: Blood Type A POSITIVE, Antibody Screen Negative, BBK History Checked Patient has bt 12/05/16 16:30: Sodium 142, Potassium 3.6, Chloride 108 H, Carbon Dioxide 22, Anion Gap 16, BUN 24 H, Creatinine 2.7 H, Est GFR ( Amer) 21, Est GFR ( Non-Af Amer) 18, Random Glucose 161 H, Calcium 8.7, Total Bilirubin 0.3, AST 25 , ALT 37, Alkaline Phosphatase 69, Lactate Dehydrogenase 316 L, Total Creatine Kinase 41, Troponin I 0.03 D, Total Protein 7.4, Albumin 4.0, Globulin 3.3, Albumin/Globulin Ratio 1.2, Triglycerides 110, Cholesterol 106 L, LDL Cholesterol Direct 50, HDL Cholesterol 34 12/05/16 16:30: PT 11.2, INR 1.04, APTT 29.3 12/05/16 16:30: WBC 12.1 H D, RBC 4.06, Hgb 11.0 L, Hct 33.7 L, MCV 83.0, MCH 27.1, MCHC 32.6, RDW 14.2, Plt Count 260, MPV 8.8, Gran % 67.9, Lymph % (Auto) 27.6, Armstrong % (Auto) 3.8, Eos % (Auto) 0.6 L, Baso % (Auto) 0.1, Gran # 8.23 H, Lymph # 3.4, Armstrong # 0.5, Eos # 0.1, Baso # 0.01 - RAD Interpretation Radiology Orders: 12/05/16 15:53 HEAD W/O (CODE STROKE) [CT] Stat CHEST PORTABLE [RAD] Stat - Medication Orders Current Medication Orders: Acetylcysteine (Acetylcysteine 20%) 4 ml IH TIDRESP DUKE Aspirin (Aspirin Chewable) 81 mg PO DAILY DUKE Cefepime HCl (Maxipime 1gm) 1 gm in 100 mls @ 100 mls/hr IVPB Q12 DUKE PRN Reason: Protocol Levalbuterol HCl (Xopenex) 0.63 mg IH TIDRESP DUKE Nicotine (Nicoderm Cq) 1 patch TD DAILY [facility]KE Ondansetron HCl (Zofran Inj) 4 mg IVP Q4H PRN PRN Reason: Nausea/Vomiting Pantoprazole Sodium (Protonix Inj) 40 mg IVP DAILY DUKE Discontinued Medications Alteplase, Recombinant (Activase 100 Mg Inj) 5 mg 0.09 mg/kg (5 mg) IV ONCE ONE Stop: 12/05/16 17:22 Last Admin: 12/05/16 18:43 Dose: Alteplase, Recombinant (Activase 100 Mg Inj) 46 mg 0.81 mg/kg (46 mg) IV ONCE ONE Stop: 12/05/16 17:23 Last Admin: 12/05/16 18:43 Dose: Aspirin (Aspirin Chewable) 162 mg PO STAT STA Stop: 12/05/16 18:12 Last Admin: 12/05/16 18:24 Dose: 162 mg Clopidogrel Bisulfate (Plavix) 300 mg PO STAT STA Stop: 12/05/16 18:12 Last Admin: 12/05/16 18:24 Dose: 300 mg Magnesium Sulfate 2 gm/ Sodium (Chloride) 104 mls @ 102 mls/hr IV ONCE ONE Stop: 12/05/16 19:24 Last Admin: 12/05/16 18:35 Dose: 102 mls/hr Sodium Chloride (Sodium Chloride 0.9%) 500 mls @ 999 mls/hr IV .Q31M STA Stop: 12/05/16 18:53 Last Admin: 12/05/16 18:29 Dose: 999 mls/hr NIHSS Scale ([place]) Time Performed: 15:50 - How Severe is the [place]oke Baseline Level of Consciousness: 0=Alert LOC to Questions: 0=Both comments correct LOC to commands: 0=Obeys both correctly Best Gaze: 0=Normal Visual: 0=No visual loss Facial: 0=Normal Motor Arm - Left: 0=No drift Motor Arm - Right: 0=No drift Motor Leg - Left: 0=No drift Motor Leg - Right: 1=Drift before 5 sec Limb Ataxia: 0=Absent Sensory: 0=Normal Best Language: 2=Severe aphasia Dysarthia: 2=Severe, near unintelligible or worse Extinction & Inattention (Neglect): 0=Normal, no object Score: 5 Risk Level: Mod Stroke Risk NIHSS Scale([place]) 2 Time Performed: 17:15 (pre-tpa) - How Severe is the [place] Baseline Level of Consciousness: 0=Alert LOC to Questions: 0=Both comments correct LOC to commands: 0=Obeys both correctly Best Gaze: 0=Normal Visual: 0=No visual loss Facial: 0=Normal Motor Arm - Left: 0=No drift Motor Arm - Right: 0=No drift Motor Leg - Left: 0=No drift Motor Leg - Right: 0=No drift Limb Ataxia: 0=Absent Sensory: 0=Normal Best Language: 2=Severe aphasia Dysarthia: 2=Severe, near unintelligible or worse Extinction & Inattention (Neglect): 0=Normal, no object Score: 4 Risk Level: Minor Stroke Risk NIHSS Scale([place])3 Time Performed: 17:30 (Immediately before TPA Administration) - How Severe is the [place] Baseline Level of Consciousness: 0=Alert LOC to Questions: 0=Both comments correct LOC to commands: 0=Obeys both correctly Best Gaze: 0=Normal Visual: 0=No visual loss Facial: 0=Normal Motor Arm - Left: 0=No drift Motor Arm - Right: 0=No drift Motor Leg - Left: 0=No drift Motor Leg - Right: 0=No drift Limb Ataxia: 0=Absent Sensory: 0=Normal Best Language: 0=No aphasia Dysarthia: 0=Normal articulation Extinction & Inattention (Neglect): 0=Normal, no object Score: 0 Risk Level: No Stroke Risk Disposition/Present on Arrival - Present on Arrival Any Indicators Present on Arrival: No History of DVT/PE: No History of Uncontrolled Diabetes: No Urinary Catheter: No History Surgical Site Infection Following: None - Disposition Have Diagnosis and Disposition been Completed?: Yes Diagnosis: Transient ischemic attack (TIA) Disposition: HOSPITALIZED Disposition Time: 17:10 Patient Plan: Admission, Telemetry Patient Problems: Current Active Problems Problem Status Onset Transient ischemic attack (TIA) Acute Condition: SERIOUS
--- NOTE | 2016-12-05 16:09 | CT ---
PROCEDURE: CT HEAD WITHOUT CONTRAST. HISTORY: Code Stroke COMPARISON: 2014. TECHNIQUE: Axial computed tomography images were obtained through the head/brain without intravenous contrast. Radiation dose: Total exam DLP = 735 mGy-cm. This CT exam was performed using one or more of the following dose reduction techniques: Automated exposure control, adjustment of the mA and/or kV according to patient size, and/or use of iterative reconstruction technique. FINDINGS: HEMORRHAGE: No intracranial hemorrhage. BRAIN: No mass effect or edema. No atrophy or chronic microvascular ischemic changes. VENTRICLES: Unremarkable. No hydrocephalus. CALVARIUM: Unremarkable. PARANASAL SINUSES: Complete opacification of the left maxillary sinus. MASTOID AIR CELLS: Unremarkable as visualized. No inflammatory changes. OTHER FINDINGS: None. IMPRESSION: No acute hemorrhage.
--- NOTE | 2016-12-05 16:30 | RAD ---
HISTORY: stroke COMPARISON: 11/05/2016 FINDINGS: LUNGS: No active pulmonary disease. PLEURA: No significant pleural effusion identified, no pneumothorax apparent. CARDIOVASCULAR: Normal. OSSEOUS STRUCTURES: No significant abnormalities. VISUALIZED UPPER ABDOMEN: Normal. OTHER FINDINGS: None. IMPRESSION: No active disease.
[2016-12-05 16:46] LABS: BASO # 0.01 K/mm3 (0.0-2.0); BASO % 0.1 % (0.0-3.0); EOS # 0.1 (0.0-0.7); EOS % 0.6 % (1.5-5.0); GRAN # 8.23 (1.4-6.5); GRAN % 67.9 % (50.0-68.0); LYMPH # 3.4 (1.2-3.4); LYMPH % 27.6 % (22.0-35.0); MEAN CORPUSCULAR HEMOGLOBIN 27.1 pg (25.0-35.0); MEAN CORPUSCULAR HGB CONC 32.6 g/dl (31.0-37.0); MEAN PLATELET VOLUME 8.8 fl (7.0-11.0); MONO # 0.5 (0.1-0.6); MONO % 3.8 % (1.0-6.0); PLATELET COUNT 260 10^3/uL (120.0-450.0); RBC 4.06 10^6/uL (3.5-6.1); RED CELL DISTRIBUTION WIDTH 14.2 % (11.5-14.5); WHITE BLOOD COUNT 12.1 10^3/ul (4.5-11.0)
[2016-12-05 16:58] LABS: ALB/GLOB RATIO 1.2 (1.1-1.8); CALCIUM 8.7 mg/dL (8.4-10.5); INR 1.04 (0.93-1.08); PARTIAL THROMBOPLASTIN TIME 29.3 Seconds (23.7-30.8); PROTHROMBIN TIME 11.2 Seconds (9.9-11.8)
[2016-12-05 17:09] LABS: TROPONIN I 0.03 ng/mL
[2016-12-05] MEDS ORDERED: Sodium Chloride 0.9% 500 ML IV STA (18:23)
[2016-12-05] MEDS ORDERED: Magnesium Sulfate 2 GM in Sodium Chloride 0.9% 100 ML IV ONE (18:23)
--- NOTE | 2016-12-05 18:40 | CP.PCM.HP ---
History of Present Illness - History of Present Illness History of Present Illness: History and Physical for Dr. Brown 66 y/o F with PMH of HTN, CAD, TANA, osteoporosis, seizure disorder, CKD, hx of right lung nodule and HLD presents to the hospital for slurred speech and right sided facial droop. Pt states she was on the phone and noticed she had trouble speaking. She went to tell her daughter about her symptoms and her daughter noticed her slurred speech. At that moment, the patient's daughter called the ambulance and was brought to the hospital. In the ED, the patient initially displayed her facial droop and slurred speech. The ED physician discussed the case with neurologist who initially agreed to give tPA to the patient. After this, the ED physician noted a resolution of symptoms and discussed this with the neurologist, who then recommended holding the tPA. When interviewed in the ED, the patient stated she no symptoms except for her voice sounding very soft. Otherwise, pt stated she did not feel weak or have any numbness of tingling. Denies CP, SOB, N/V/D, fevers, chills. PMH: HTN, CAD, HLD, COPD, Thyroid Lumps, TANA, Osteoporosis, Osteoarthritis, Seizure Disorder, CKD, Right Middle Lobe Nodule PSH: Stents, Cholecystectomy, Thyroid Bx, Hysterectomy Social Hx: Occasional EtOH; Heavy Tobacco; Denies illicits FMH: Noncontributory Medications: Amlodipine, Atorvastatin, Protonix Allergies: Oxycodone, Shellfish, MRI Contrast Present on Admission - Present on Admission Any Indicators Present on Admission: No Review of Systems - Constitutional Constitutional: absent: Chills, Fatigue, Fever - EENT Eyes: absent: Change in Vision, Diplopia - Cardiovascular Cardiovascular: absent: Chest Pain, Irregular Heart Rhythm - Respiratory Respiratory: absent: Cough, Dyspnea - Gastrointestinal Gastrointestinal: absent: Diarrhea, Nausea, Vomiting - Genitourinary Genitourinary: absent: Dysuria, Pyuria - Musculoskeletal Musculoskeletal: absent: Numbness, Tingling - Integumentary Integumentary: absent: New Lesions, Rash - Neurological Neurological: Abnormal Speech. absent: Numbness, Syncope, Tingling - Hematologic/Lymphatic Hematologic: absent: Easy Bleeding, Easy Bruising Past Patient History - Infectious Disease Hx of Infectious Diseases: None - Tetanus Immunizations Tetanus Immunization: Unknown - Past Social History Smoking Status: Light Smoker < 10 Cigarettes Daily - CARDIAC Hx Pacemaker: No - PULMONARY Hx Chronic Obstructive Pulmonary Disease (COPD): Yes - NEUROLOGICAL Hx Paralysis: No - HEENT Hx HEENT Problems: No - RENAL Hx Chronic Kidney Disease: No - ENDOCRINE/METABOLIC Hx Endocrine Disorders: No - HEMATOLOGICAL/ONCOLOGICAL Hx Blood Transfusions: No - INTEGUMENTARY Hx Dermatological Problems: No - MUSCULOSKELETAL/RHEUMATOLOGICAL Hx Musculoskeletal Disorders: Yes - GASTROINTESTINAL Hx Gastrointestinal Disorders: No - GENITOURINARY/GYNECOLOGICAL Hx Genitourinary Disorders: No - PSYCHIATRIC Hx Emotional Abuse: No Hx Physical Abuse: No Hx Substance Use: No - SURGICAL HISTORY Hx Cardiac Catheterization: Yes - ANESTHESIA Hx Anesthesia Reactions: No Hx Malignant Hyperthermia: No Meds Allergies/Adverse Reactions: Allergies Allergy/AdvReac Type Severity Reaction Status Date / Time oxycodone Allergy Severe DIZZINESS Verified 12/05/16 15:52 mri contrast Allergy Severe RASH Uncoded 12/05/16 15:52 Physical Exam - Constitutional Appears: Well, No Acute Distress - Head Exam Head Exam: ATRAUMATIC, NORMAL INSPECTION, NORMOCEPHALIC - Eye Exam Eye Exam: EOMI, PERRL - ENT Exam ENT Exam: Mucous Membranes Moist - Neck Exam Neck exam: Positive for: Normal Inspection. Negative for: Lymphadenopathy - Respiratory Exam Respiratory Exam: Clear to Auscultation Bilateral, NORMAL BREATHING PATTERN. absent: Rales, Rhonchi, Wheezes - Cardiovascular Exam Cardiovascular Exam: RRR, +S1, +S2 - GI/Abdominal Exam GI & Abdominal Exam: Normal Bowel Sounds, Soft. absent: Tenderness - Extremities Exam Extremities exam: Positive for: normal inspection. Negative for: calf tenderness, pedal edema - Neurological Exam Neurological exam: Alert, CN II-XII Intact, Oriented x3 Additional comments: 5/5 muscle strength in upper and lower extremities No sensory or motor deficits No facial droop - Psychiatric Exam Psychiatric exam: Normal Affect, Normal Mood - Skin Skin Exam: Intact, Normal Color, Warm Results - Vital Signs Recent Vital Signs: Last Vital Signs Temp 98.9 F 12/05/16 16:16 Pulse 71 12/05/16 17:52 Resp 18 12/05/16 17:52 BP 126/81 12/05/16 17:52 Pulse Ox 100 12/05/16 17:52 - Labs Result Diagrams: 12/05/16 16:30 12/05/16 16:30 Assessment & Plan - Assessment and Plan (Free Text) Plan: 66 y/o F with PMH of HTN, CAD, TANA, osteoporosis, seizure disorder, CKD, hx of right lung nodule and HLD presents with TIA. Head CT showed no acute intracranial hemorrhage. Pt with resolution of symptoms in the ED, so no tPA was given. Pt will be admitted and monitored closely. 1. TIA Head CT negative MRA head and neck ordered ASA started Trend troponins Speech and swallow eval Will continue statin once able to tolerate PO NPO diet Neurology consulted, Dr. Perez 2. Recurrent UTI Cefepime UA Urine culture 3. CKD Creatinine at baseline Will trend and follow in AM 4. Hx of tobacco use Nicontine patch Xopenex Mucomyst 4. PPX Heparin Protonix Hiram Saucedo, PGY-2
[2016-12-05] MEDS ORDERED: Acetylcysteine 20% Inhal Soln (4ml) IH SCH (20:00)
[2016-12-05] MEDS ORDERED: Levalbuterol 0.63 MG/3 ML Inhal Soln UD IH SCH (20:00)
[2016-12-05 20:15] LABS: BARBITURATES, UR NEGATIVE (NEGATIVE); BENZODIAZEPINES, UR NEGATIVE (NEGATIVE); OPIATES, UR NEGATIVE (NEGATIVE); PHENCYCLIDINE, UR NEGATIVE (NEGATIVE)
--- NOTE | 2016-12-05 21:02 | MRI ---
EXAM: MR Angiography Head Without Intravenous Contrast CLINICAL HISTORY: The patient age is 66 years old and is female; Signs and symptoms; Other: Aphasia and right facial asymmetry; Additional info: Aphasia and r facial asymmetry Facility exam id and description: Mri mra heads mra head without contrast TECHNIQUE: Magnetic resonance angiography images of the head without intravenous contrast. EXAM DATE/TIME: 12/05/2016 6:22 PM COMPARISON: CT - HEAD W/O (CODE STROKE) 12/05/2016 3:49:45 PM FINDINGS: Artifacts: Artifact limits this study. Right internal carotid artery: There is mild stenosis of the distal right internal carotid artery. No aneurysm. Right anterior cerebral artery: No occlusion or significant stenosis. No aneurysm. Right middle cerebral artery: No occlusion or significant stenosis. No aneurysm. Right posterior cerebral artery: No occlusion or significant stenosis. No aneurysm. Right vertebral artery: No occlusion or significant stenosis. Left internal carotid artery: No acute findings. Intracranial segment is patent with no significant stenosis. No aneurysm. Left anterior cerebral artery: There is stenosis of the distal A1 segment of the left anterior cerebral artery. Left middle cerebral artery: There is stenosis of an M2 branch of the left middle cerebral artery. There is no significant stenosis of the M1 segment of the left middle cerebral artery. Left posterior cerebral artery: No occlusion or significant stenosis. No aneurysm. Left vertebral artery: There is irregularity of the distal left vertebral artery, with mild stenosis. Basilar artery: No occlusion or significant stenosis. No aneurysm. Sinuses: There is opacification of the left maxillary sinus. IMPRESSION: 1. There is irregularity of the distal left vertebral artery, with mild stenosis. 2. There is stenosis of the distal A1 segment of the left anterior cerebral artery. 3. There is stenosis of an M2 branch of the left middle cerebral artery. 4. Incidental/non-acute findings are described above.
--- NOTE | 2016-12-05 21:12 | MRI ---
EXAM: MR Angiography Neck Without Intravenous Contrast CLINICAL HISTORY: The patient age is 66 years old and is female; Signs and symptoms; Other: Aphasia and right facial asymmetry; Additional info: Initial aphasia, now r facial asymmetry Facility exam id and description: Mri mra necks mra neck without contrast TECHNIQUE: Magnetic resonance angiography images of the neck without intravenous contrast. EXAM DATE/TIME: 12/05/2016 6:22 PM COMPARISON: CT - NECK CHEST W/O CONTRAST 11/07/2016 1:13:12 PM FINDINGS: Right common carotid artery: No visualized stenosis of the distal common carotid artery. No occlusion. Artifact limits evaluation of the proximal common carotid artery. Right internal carotid artery: There is mild stenosis of the proximal right internal carotid artery. The degree of stenosis is approximately 40%. Right external carotid artery: No occlusion. Right vertebral artery: There is increased tortuosity of the bilateral vertebral arteries. Decreased signal intensity is seen within the mid right vertebral artery, suggestive of stenosis or in-plane saturation. Artifact limits evaluation of the distal vertebral arteries. Left common carotid artery: No visualized stenosis of the distal common carotid artery. No occlusion. Artifact limits evaluation of the proximal common carotid artery. Left internal carotid artery: Extracranial segment is patent with no significant stenosis. No dissection or occlusion. Left external carotid artery: No occlusion. Left vertebral artery: See above. Other vasculature: A bovine aortic arch is visualized. Thyroid: There is heterogeneous signal intensity in the region of the right thyroid lobe, consistent with thyroid nodules when correlated with the previous CT. CAROTID STENOSIS REFERENCE USING NASCET CRITERIA: % ICA stenosis = (1 - narrowest ICA diameter/diameter of distal cervical ICA) x 100. Mild - <50% stenosis. Moderate - 50-69% stenosis. Severe - 70-94% stenosis. Near occlusion - 95-99% stenosis. Occluded - 100% stenosis. IMPRESSION: 1. There is mild stenosis of the proximal right internal carotid artery. The degree of stenosis is approximately 40%. 2. There is increased tortuosity of the bilateral vertebral arteries. Decreased signal intensity is seen within the mid right vertebral artery, suggestive of stenosis or in-plane saturation. This could be further evaluated with post contrast MRA or CTA. 3. There is heterogeneous signal intensity in the region of the right thyroid lobe, consistent with thyroid nodules when correlated with the previous CT. Nonemergent ultrasonography is recommended. 4. Incidental/non-acute findings are described above.
[2016-12-05] MEDS: Pantoprazole 20 mg EC Tab PO SCH (22:18)
[2016-12-05] MEDS: Cefepime 1gm in NS 100ml 1 GM/100 ML BAG IVPB SCH (22:18)
--- NOTE | 2016-12-06 00:18 | CARD ---
APPROVED REPORT EKG Measurement Heart [id number] IN [id number] <Conclusion> Normal sinus rhythm Nonspecific T wave abnormality Abnormal ECG
[2016-12-06] MEDS: Acetylcysteine 20% Inhal Soln (4ml) IH SCH ×4 (03:22→19:48)
[2016-12-06] MEDS: Levalbuterol 0.63 MG/3 ML Inhal Soln UD IH SCH ×4 (03:23→19:49)
[2016-12-06 05:30] LABS: URINE BILIRUBIN NEGATIVE (NEGATIVE); URINE BLOOD NEGATIVE (NEGATIVE); URINE GLUCOSE (UA) NEGATIVE (NEGATIVE); URINE LEUKOCYTE ESTERASE SMALL Leu/uL (NEGATIVE); URINE NITRATE POSITIVE (NEGATIVE); URINE PROTEIN NEGATIVE mg/dL (<30 mg/dL); URINE UROBILINOGEN 0.2 E.U./dL (<1 E.U./dL)
[2016-12-06 05:45] LABS: URINE APPEARANCE SL CLOUDY (CLEAR); URINE COLOR YELLOW (YELLOW)
[2016-12-06 05:49] LABS: URINE BACTERIA OCC (NEG); URINE RBC 0 - 2 /hpf (0-2)
[2016-12-06] MEDS: Pantoprazole 20 mg EC Tab PO SCH ×2 (05:52→16:03)
[2016-12-06 06:11] VITALS: O2SAT 98
[2016-12-06 06:43] LABS: HEMOGLOBIN 10.3 g/dL (12.0-16.0); MEAN CELL VOLUME 83.6 fl (80.0-105.0); MEAN CORPUSCULAR HEMOGLOBIN 26.4 pg (25.0-35.0); MEAN CORPUSCULAR HGB CONC 31.6 g/dl (31.0-37.0); RBC 3.9 10^6/uL (3.5-6.1); RED CELL DISTRIBUTION WIDTH 14.5 % (11.5-14.5); WHITE BLOOD COUNT 9.9 10^3/ul (4.5-11.0)
[2016-12-06 06:54] LABS: ALB/GLOB RATIO 1.1 (1.1-1.8); ALBUMIN 3.5 g/dL (3.0-4.8); CALCIUM 8.5 mg/dL (8.4-10.5)
[2016-12-06 06:59] LABS: TROPONIN I 0.06 ng/mL
[2016-12-06 07:09] LABS: FREE T4 1.14 ng/dL (0.78-2.19); T4 6.9 ug/dL (5.5-11.0)
[2016-12-06] MEDS: Arformoterol 15 mcg/2 ml Inh Sol IH SCH ×2 (07:16→19:48)
[2016-12-06 08:30] LABS: % IRON SATURATION 10 % (20-55); IRON 24 ug/dL (45-180); TOTAL IRON BINDING CAPACITY 233 ug/dL (265-497)
[2016-12-06] MEDS ORDERED: Sodium Chloride 0.9% 1,000 ML IV STA ×2 (09:34→14:40)
[2016-12-06] MEDS ORDERED: Magnesium Sulfate 2 GM in Sodium Chloride 0.9% 100 ML IVPB ONE (09:35)
--- NOTE | 2016-12-06 09:36 | CP.PCM.PCO ---
Physician Communication Note - Physician Communication Note Physician Communication Note: ASA and plavix to be given before MRI done today as per neuro
--- NOTE | 2016-12-06 09:40 | CP.PCM.PN ---
Subjective - Date & Time of Evaluation Date of Evaluation: 12/06/16 Time of Evaluation: 09:37 - Subjective Subjective: Internal medicine progress note for Dr. Yordan Beasley, PGY-1 Pt S & E at bedside. Per nursing- pt with possible recurrent stroke symptoms. Resident performed bedside NIH stroke scale- found to be approximately 3-4 with poor effort. Pt with grossly slurred speech on exam. Labile at bedside. Denies N/V/F/C, SOB, CP , changes in sensation, other complaints. Objective - Vital Signs/Intake and Output Vital Signs (last 24 hours): Temp Pulse Resp BP Pulse Ox 98.5 F 72 20 131/75 98 12/06/16 06:00 12/06/16 06:00 12/06/16 06:00 12/06/16 06:00 12/06/16 06:00 Intake and Output: 12/06/16 12/06/16 06:59 18:59 Intake Total 240 Balance 240 - Medications Medications: Current Medications Acetylcysteine (Acetylcysteine 20%) 4 ml IH Q6H [facility] Last Admin: 12/06/16 07:16 Dose: 4 ml Amlodipine Besylate (Norvasc) 10 mg PO DAILY [facility] Arformoterol Tartrate (Brovana) 15 mcg IH [id number] [facility] Last Admin: 12/06/16 07:16 Dose: 15 mcg Aspirin (Aspirin Chewable) 81 mg PO DAILY [facility] Atorvastatin Calcium (Lipitor) 40 mg PO DAILY [facility] Clopidogrel Bisulfate (Plavix) 75 mg PO DAILY [facility] Cefepime HCl (Maxipime 1gm) 1 gm in 100 mls @ 100 mls/hr IVPB Q12 [facility] PRN Reason: Protocol Last Admin: 12/05/16 22:18 Dose: 100 mls/hr Sodium Chloride (Sodium Chloride 0.9%) 1,000 mls @ 999 mls/hr IV .Q1H1M STA Stop: 12/06/16 10:34 Magnesium Sulfate 2 gm/ Sodium (Chloride) 104 mls @ 102 mls/hr IVPB ONCE ONE Stop: 12/06/16 10:36 Levalbuterol HCl (Xopenex) 0.63 mg IH Q6H [facility] Last Admin: 12/06/16 07:17 Dose: 0.63 mg Nicotine (Nicoderm Cq) 1 patch TD DAILY [facility] Ondansetron HCl (Zofran Inj) 4 mg IVP Q4H PRN PRN Reason: Nausea/Vomiting Pantoprazole Sodium (Protonix Ec Tab) 20 mg PO 0600,1600 [facility] Last Admin: 12/06/16 05:52 Dose: 20 mg - Labs Labs: 12/06/16 04:45 12/06/16 04:10 PT 11.2 Seconds (9.9-11.8) 12/05/16 16:30 INR 1.04 (0.93-1.08) 12/05/16 16:30 APTT 29.3 Seconds (23.7-30.8) 12/05/16 16:30 - Constitutional Appears: Non-toxic, No Acute Distress - Head Exam Head Exam: ATRAUMATIC, NORMAL INSPECTION, NORMOCEPHALIC - Eye Exam Eye Exam: EOMI, Normal appearance - ENT Exam ENT Exam: Mucous Membranes Moist, Normal Exam - Neck Exam Neck Exam: Normal Inspection - Respiratory Exam Respiratory Exam: Clear to Ausculation Bilateral, NORMAL BREATHING PATTERN - Cardiovascular Exam Cardiovascular Exam: REGULAR RHYTHM, +S1, +S2 - GI/Abdominal Exam GI & Abdominal Exam: Soft, Normal Bowel Sounds. absent: Tenderness - Extremities Exam Extremities Exam: Normal Inspection. absent: Pedal Edema - Neurological Exam Neurological Exam: Alert, Awake, CN II-XII Intact (grossly, slight facial droop over left lower face), Oriented x3. absent: Motor Sensory Deficit Neuro motor strength exam: Left Upper Extremity: 4 (Poor effort), Right Upper Extremity: 3 (Poor effort), Left Lower Extremity: 5 (Poor effort), Right Lower Extremity: 3 (Poor effort) - Psychiatric Exam Additional comments: labile - Skin Skin Exam: Dry, Intact, Normal Color, Warm Assessment and Plan - Assessment and Plan (Free Text) Assessment: 66F w/TIA- possibly recurrent Plan: TIA VSS Neuro checks Q2H Seizure precautions Trops neg x 2 NIH stroke scale 3-4 with poor effort/lability UDS neg CT brain neg MRA brain- 1. There is irregularity of the distal left vertebral artery, with mild stenosis. 2. There is stenosis of the distal A1 segment of the left anterior cerebral artery. 3. There is stenosis of an M2 branch of the left middle cerebral artery MRA neck- 1. There is mild stenosis of the proximal right internal carotid artery. The degree of stenosis is approximately 40%. 2. There is increased tortuosity of the bilateral vertebral arteries. Decreased signal intensity is seen within the mid right vertebral artery, suggestive of stenosis or in-plane saturation. This could be further evaluated with post contrast MRA or CTA. 3. There is heterogeneous signal intensity in the region of the right thyroid lobe, consistent with thyroid nodules when correlated with the previous CT. Nonemergent ultrasonography is recommended. FU brain MRI NPO except meds until passes swallow eval FU swallow eval Neuro following- recs for ASA and Plavix prior to MRI brain, Bolus of NS, target SBP>160, Mag 2gm HTN/CAD/HLD Trops neg x 2, trending Norvasc ASA Lipitor Plavix Cardio following Recurrent UTI Cefepime U/A pos for nitrate, sm LE FU Urine Cx CKD (Chronic) Cr at baseline Monitor COPD Mucomyst Brovana Xopenex Solu-medrol 125mg x 1 Anemia Hgb 10.3 from 11 Hct 32.6 from 33.7 FU Ferritin FU Folate FU Vit D level Fe 24 TIBC 233 %sat 10 Monitor Nicotine dependence Nicotine patch Smoking cessation counseling GI/DVT ppx Protonix Contraindications to VTE ppx 2/2 stroke Dispo PT/OT OOBTC with assistance Speech eval Swallow eval Will advance diet after passes swallow eval JOY attending Gale, PGY-1
--- NOTE | 2016-12-06 10:31 | CP.PCM.PN ---
Addendum entered and electronically signed by Valerie Downey DO 12/06/16 12: 54: NIHSS stroke score: 4- 5 1 point for facial paresis, 1 point for R leg drift, 1 point for R sided heel to canela ataxia, 1 point for mild aphasia, 1 point for mild slurring of words. Original Note: <Valerie Downey - Last Filed: 12/06/16 10:28> Subjective - Date & Time of Evaluation Date of Evaluation: 12/06/16 Time of Evaluation: 09:10 - Subjective Subjective: Stat Call Nurses called stat call for patient inability to speak clearly. Responded stat. Patient was evaluated. PMD was also notified. NIHSS stroke scale of 4-5. Hard to discern secondary to poor effort. Neurologist was notified as well. Objective - Vital Signs/Intake and Output Vital Signs (last 24 hours): Temp Pulse Resp BP Pulse Ox 98.5 F 72 20 131/75 98 12/06/16 06:00 12/06/16 06:00 12/06/16 06:00 12/06/16 06:00 12/06/16 06:00 Intake and Output: 12/06/16 12/06/16 06:59 18:59 Intake Total 240 Balance 240 - Medications Medications: Current Medications Acetylcysteine (Acetylcysteine 20%) 4 ml IH Q6H [facility] Last Admin: 12/06/16 07:16 Dose: 4 ml Amlodipine Besylate (Norvasc) 10 mg PO DAILY [facility] Arformoterol Tartrate (Brovana) 15 mcg IH [id number] [facility] Last Admin: 12/06/16 07:16 Dose: 15 mcg Aspirin (Aspirin Chewable) 81 mg PO DAILY [facility] Last Admin: 12/06/16 09:36 Dose: 81 mg Atorvastatin Calcium (Lipitor) 40 mg PO DAILY [facility] Clopidogrel Bisulfate (Plavix) 75 mg PO DAILY [facility] Last Admin: 12/06/16 09:37 Dose: 75 mg Cefepime HCl (Maxipime 1gm) 1 gm in 100 mls @ 100 mls/hr IVPB Q12 [facility] PRN Reason: Protocol Last Admin: 12/05/16 22:18 Dose: 100 mls/hr Sodium Chloride (Sodium Chloride 0.9%) 1,000 mls @ 999 mls/hr IV .Q1H1M [facility]A Stop: 12/06/16 10:34 Magnesium Sulfate 2 gm/ Sodium (Chloride) 104 mls @ 102 mls/hr IVPB ONCE ONE Stop: 12/06/16 10:36 Iron Sucrose 200 mg/ Sodium (Chloride) 110 mls @ 110 mls/hr IVPB DAILY [facility] Stop: 12/08/16 10:59 Levalbuterol HCl (Xopenex) 0.63 mg IH Q6H [facility] Last Admin: 12/06/16 07:17 Dose: 0.63 mg Nicotine (Nicoderm Cq) 1 patch TD DAILY [facility] Ondansetron HCl (Zofran Inj) 4 mg IVP Q4H PRN PRN Reason: Nausea/Vomiting Pantoprazole Sodium (Protonix Ec Tab) 20 mg PO 0600,1600 [facility] Last Admin: 12/06/16 05:52 Dose: 20 mg - Labs Labs: 12/06/16 04:45 12/06/16 04:10 PT 11.2 Seconds (9.9-11.8) 12/05/16 16:30 INR 1.04 (0.93-1.08) 12/05/16 16:30 APTT 29.3 Seconds (23.7-30.8) 12/05/16 16:30 - Constitutional Appears: No Acute Distress - Head Exam Head Exam: ATRAUMATIC, NORMAL INSPECTION, NORMOCEPHALIC - Eye Exam Eye Exam: Normal appearance, PERRL Pupil Exam: NORMAL ACCOMODATION, PERRL - ENT Exam ENT Exam: Mucous Membranes Moist - Respiratory Exam Respiratory Exam: Clear to Ausculation Bilateral, NORMAL BREATHING PATTERN. absent: Rales, Rhonchi, Wheezes - Cardiovascular Exam Cardiovascular Exam: REGULAR RHYTHM, +S1, +S2. absent: Gallop, Rubs, Murmur - GI/Abdominal Exam GI & Abdominal Exam: Soft, Normal Bowel Sounds. absent: Rigid, Tenderness, Mass , Rebound - Extremities Exam Extremities Exam: Normal Inspection. absent: Calf Tenderness, Pedal Edema - Neurological Exam Neurological Exam: Alert, Awake, Oriented x3 Additional comments: NIHSS stroke scale 4-5. Pt has poor effort as well. Speech slurred. Mild facial droop on R. Pt tearful upon examination. - Skin Skin Exam: Dry, Intact, Normal Color, Warm Assessment and Plan - Assessment and Plan (Free Text) Assessment: 66Y F admitted for TIA. Stat call for slurred speech. Plan: - Brain MRI ordered stat - ASA and Plavix given - Neurologist, Dr. Perez notified. - As per neuro: Pt should have 1L Bolus and 2g Mag- maintain BP on higher side - PMD notified and aware of call. Case seen, discussed and reviewed with attending Carolee Downey PGY2 <Saba Ny - Last Filed: 12/06/16 15:34> Objective - Vital Signs/Intake and Output Vital Signs (last 24 hours): Temp Pulse Resp BP Pulse Ox 98.5 F 97 H 20 124/64 98 12/06/16 12:00 12/06/16 12:00 12/06/16 12:00 12/06/16 12:00 12/06/16 06:00 Intake and Output: 12/06/16 12/06/16 06:59 18:59 Intake Total 240 Balance 240 - Medications Medications: Current Medications Acetylcysteine (Acetylcysteine 20%) 4 ml IH Q6H [facility] Last Admin: 12/06/16 13:22 Dose: 4 ml Arformoterol Tartrate (Brovana) 15 mcg IH [id number] Last Admin: 12/06/16 07:16 Dose: 15 mcg Aspirin (Aspirin Chewable) 81 mg PO DAILY [facility] Last Admin: 12/06/16 09:36 Dose: 81 mg Atorvastatin Calcium (Lipitor) 40 mg PO DAILY [facility] Last Admin: 12/06/16 10:28 Dose: Not Given Clopidogrel Bisulfate (Plavix) 75 mg PO DAILY [facility] Last Admin: 12/06/16 09:37 Dose: 75 mg Cefepime HCl (Maxipime 1gm) 1 gm in 100 mls @ 100 mls/hr IVPB Q12 [facility] PRN Reason: Protocol Last Admin: 12/06/16 10:35 Dose: 100 mls/hr Iron Sucrose 200 mg/ Sodium (Chloride) 110 mls @ 110 mls/hr IVPB DAILY [facility] Stop: 12/08/16 10:59 Last Admin: 12/06/16 13:03 Dose: 110 mls/hr Sodium Chloride (Sodium Chloride 0.9%) 1,000 mls @ 100 mls/hr IV .Q10H [facility] Stop: 12/07/16 00:39 Levalbuterol HCl (Xopenex) 0.63 mg IH Q6H [facility] Last Admin: 12/06/16 13:22 Dose: 0.63 mg Nicotine (Nicoderm Cq) 1 patch TD DAILY [facility] Last Admin: 12/06/16 11:38 Dose: Not Given Ondansetron HCl (Zofran Inj) 4 mg IVP Q4H PRN PRN Reason: Nausea/Vomiting Pantoprazole Sodium (Protonix Ec Tab) 20 mg PO 0600,1600 [facility] Last Admin: 12/06/16 05:52 Dose: 20 mg - Labs Labs: 12/06/16 04:45 12/06/16 04:10 PT 11.2 Seconds (9.9-11.8) 12/05/16 16:30 INR 1.04 (0.93-1.08) 12/05/16 16:30 APTT 29.3 Seconds (23.7-30.8) 12/05/16 16:30 Attending/Attestation - Attestation I have personally seen and examined this patient.: Yes I have fully participated in the care of the patient.: Yes I have reviewed all pertinent clinical information, including history, physical exam and plan: Yes Notes (Text): 12/06/16 15:32 Reviewed findings with resident and discussed case with Dr Brown.Further orders as advised by Dr Brown. NIHSS Scale ([place]) Time Performed: 09:10 - Notes Notes: Pt's baseline evaluation for stroke scale was on 12/05/2016 at 3:50 PM. Today patient was evaluated at 9:10 AM. for recurrence of slurring of speech. As noted above the score is a 5.
[2016-12-06] MEDS: Cefepime 1gm in NS 100ml 1 GM/100 ML BAG IVPB SCH ×2 (10:35→22:01)
--- NOTE | 2016-12-06 10:52 | CP.PCM.PCO ---
Physician Communication Note - Physician Communication Note Physician Communication Note: Do not treat BP unless SBP >210/110 per neurology , holding BP meds
--- NOTE | 2016-12-06 11:20 | MRI ---
PROCEDURE: MRI BRAIN WITHOUT CONTRAST HISTORY: slurring COMPARISON: None. TECHNIQUE: Multiplanar, multisequence MR images of the brain were obtained without intravenous contrast enhancement. FINDINGS: HEMORRHAGE: None DWI: There are some equivocal findings on diffusion imaging in the left posterior frontal cortex which may represent small subacute infarcts. There is a small cortical lesion seen on image 15 series 3 and a small linear white matter lesion on image 16. These are not seen on the ADC images. BRAIN PARENCHYMA: No mass effect or edema. No atrophy or chronic microvascular ischemic changes. VENTRICLES: Unremarkable. No hydrocephalus. CRANIUM: Unremarkable. ORBITS: Grossly unremarkable. PARANASAL SINUSES/MASTOIDS: There is fluid opacification of the right mastoid air cells consistent with mastoiditis. There is complete opacification of the left maxillary sinus VASCULAR SYSTEM: Skull base flow voids intact. OTHER FINDINGS: None. IMPRESSION: Equivocal findings on diffusion imaging which may represent minimal subacute cortical infarcts in the left posterior frontal lobe. See comments
--- NOTE | 2016-12-06 12:00 | CP.PCM.CON ---
History of Present Illness - History of Present Illness History of Present Illness: Mrs. Streeter is a 66-year-old woman with a past medical history of CKD, HTN, CAD who presented with symptoms of productive aphasia and right side weakness that resolved completely and seemed to fluctuate between complete resolution to regression of symptoms. This morning, around 9:30 AM, her symptoms returned, but after she was given aspirin/plavix and fluids, she improved. She had an MRA of the head/neck which did show corresponding left M2 branch of the MCA stenosis and the MRI did show a subacute infarct (small) in the left frontal/ parietal region. Currently, the patient is speaking normally and states she feels back to normal. She does have some complaints of right side weakness, but this also has improved. She does not have any other complaints right now except for being hungry and upset that she was made NPO. Review of Systems - Review of Systems All systems: reviewed and no additional remarkable complaints except Past Patient History - Infectious Disease Hx of Infectious Diseases: None - Tetanus Immunizations Tetanus Immunization: Unknown - Past Social History Smoking Status: Light Smoker < 10 Cigarettes Daily - CARDIAC Hx Cardiac Disorders: Yes (MD x2) Hx Angina: No Hx Cardia Arrhythmia: No Hx Circulatory Problems: Yes Hx Congestive Heart Failure: No Hx Heart Murmur: No Hx Heart Transplant: No Hx Hypercholesterolemia: Yes Hx Hypertension: Yes Hx Internal Defibrillator: No Hx Mitral Valve Prolapse: No Hx Pacemaker: No Hx Peripheral Edema: No Hx Peripheral Vascular Disease: No - PULMONARY Hx Respiratory Disorders: Yes Hx Asthma: No Hx Bronchitis: No Hx Chronic Obstructive Pulmonary Disease (COPD): Yes Hx Emphysema: No Hx Pneumonia: No Hx Respiratory Aspiration: No Hx Respiratory Tract Infection: No Hx Sleep Apnea: Yes Hx Tuberculosis: No - NEUROLOGICAL Hx Neurological Disorder: Yes Hx Alzheimer's Disease: No HX Cerebrovascular Accident: Yes Hx Dementia: No Hx Dizziness: No Hx Meningitis: No Hx Migraine: No Hx Parkinson's Disease: No Hx Seizures: Yes Hx Transient Ischemic Attacks (TIA): No - HEENT Hx HEENT Problems: No Hx Blind: No Hx Cataracts: No Hx Deafness: No Hx Difficulty Chewing: No Hx Epistaxis: No Hx Glaucoma: No Hx Macular Degeneration: No - RENAL Hx Chronic Kidney Disease: Yes Hx Dialysis: No Hx Kidney Stones: No Hx Neurogenic Bladder: No Hx Pyelonephritis: No Hx Renal (Kidney) Cancer: No Hx Renal Failure: Yes - ENDOCRINE/METABOLIC Hx Endocrine Disorders: No Hx Adrenal Cancer: No Hx Diabetes Insipidus: No Hx Diabetes Mellitus Type 1: No Hx Diabetes Mellitus Type 2: No Hx Hyperthyroidism: No Hx Hypothyroidism: No Hx Systemic Lupus Erythematosus: No - HEMATOLOGICAL/ONCOLOGICAL Hx Blood Disorders: Yes Hx AIDS: No Hx Anemia: Yes Hx Cancer: No Hx Chemotherapy: No Hx Cirrhosis: No Hx Hemophilia: No Hx Hepatitis A: No Hx Hepatitis B: No Hx Hepatitis C: No Hx Human Immunodeficiency Virus (HIV): No Hx Metastesis: No Hx Shingles: No Hx Sickle Cell Disease: No Hx Unexplained Bleeding: No - INTEGUMENTARY Hx Dermatological Problems: No Hx Basil Cell: No Hx Eczema: No Hx Melanoma: No Hx Psoriasis: No Hx Squamous Cell: No - MUSCULOSKELETAL/RHEUMATOLOGICAL Hx Musculoskeletal Disorders: Yes Hx Arthritis: Yes Hx Back Pain: No Hx Degenerative Joint Disease: Yes Hx Falls: No Hx Fractures: No Hx Gout: No Hx Herniated Disk: No Hx Myasthenia Gravis: No Hx Osteoarthritis: No Hx Osteomyelitis: No Hx Osteoporosis: No Hx Rhabdomyolysis: No Hx Spinal Stenosis: No Hx Unsteady Gait: Yes - GASTROINTESTINAL Hx Gastrointestinal Disorders: Yes Hx Colostomy: No Hx Crohn's Disease: No Hx Diverticulitis: No Hx Gall Bladder Disease: No Hx Gastroesophageal Reflux: Yes Hx Ileostomy: No Hx Liver Failure: No Hx Pancreatitis: No HX Swallowing Problems: No Hx Ulcer: No - GENITOURINARY/GYNECOLOGICAL Hx Genitourinary Disorders: No Hx Hematuria: No Hx Incontinence: No Hx Sexually Transmitted Disorders: No Hx Urinary Tract Infection: No - PSYCHIATRIC Hx Psychophysiologic Disorder: Yes Hx Anxiety: No Hx Bipolar Disorder: No Hx Depression: Yes Hx Emotional Abuse: No Hx Hallucinations: No Hx Panic Symptoms: No Hx Paranoia: No Hx Post Traumatic Stress Disorder: No Hx Psychosis: No Hx Physical Abuse: No Hx Schizophrenia: No Hx Sexual Abuse: No Hx Substance Use: No - SURGICAL HISTORY Hx Surgeries: Yes Hx Amputation: No Hx Appendectomy: No Hx Cardiac Catheterization: Yes Hx Cholecystectomy: Yes Hx Coronary Stent: Yes Hx Gastric Bypass Surgery: No Hx Hysterectomy: Yes Hx Joint Replacement: No Hx Kidney Transplant: No Hx Liver Transplant: No Hx Mastectomy: No Hx Musculoskeletal Surgery: Yes Hx Open Heart Surgery: No Hx Orthopedic Surgery: No Hx Splenectomy: No Hx Valve Replacement: No - ANESTHESIA Hx Anesthesia Reactions: No Hx Malignant Hyperthermia: No Meds Allergies/Adverse Reactions: Allergies Allergy/AdvReac Type Severity Reaction Status Date / Time oxycodone Allergy Severe DIZZINESS Verified 12/05/16 15:52 mri contrast Allergy Severe RASH Uncoded 12/05/16 15:52 - Medications Medications: Current Medications Acetylcysteine (Acetylcysteine 20%) 4 ml IH Q6H [facility] Last Admin: 12/06/16 07:16 Dose: 4 ml Arformoterol Tartrate (Brovana) 15 mcg IH [id number] [facility] Last Admin: 12/06/16 07:16 Dose: 15 mcg Aspirin (Aspirin Chewable) 81 mg PO DAILY [facility] Last Admin: 12/06/16 09:36 Dose: 81 mg Atorvastatin Calcium (Lipitor) 40 mg PO DAILY [facility] Last Admin: 12/06/16 10:28 Dose: Not Given Clopidogrel Bisulfate (Plavix) 75 mg PO DAILY [facility] Last Admin: 12/06/16 09:37 Dose: 75 mg Cefepime HCl (Maxipime 1gm) 1 gm in 100 mls @ 100 mls/hr IVPB Q12 [facility] PRN Reason: Protocol Last Admin: 12/06/16 10:35 Dose: 100 mls/hr Iron Sucrose 200 mg/ Sodium (Chloride) 110 mls @ 110 mls/hr IVPB DAILY [facility] Stop: 12/08/16 10:59 Levalbuterol HCl (Xopenex) 0.63 mg IH Q6H [facility] Last Admin: 12/06/16 07:17 Dose: 0.63 mg Nicotine (Nicoderm Cq) 1 patch TD DAILY [facility] Last Admin: 12/06/16 11:38 Dose: Not Given Ondansetron HCl (Zofran Inj) 4 mg IVP Q4H PRN PRN Reason: Nausea/Vomiting Pantoprazole Sodium (Protonix Ec Tab) 20 mg PO 0600,1600 [facility] Last Admin: 12/06/16 05:52 Dose: 20 mg Physical Exam - Constitutional Appears: Well - Head Exam Head Exam: ATRAUMATIC, NORMAL INSPECTION, NORMOCEPHALIC - Eye Exam Eye Exam: EOMI, Normal appearance, PERRL - ENT Exam ENT Exam: Mucous Membranes Moist, Normal Exam - Neck Exam Neck exam: Positive for: Normal Inspection - Respiratory Exam Respiratory Exam: Clear to Auscultation Bilateral, NORMAL BREATHING PATTERN - Cardiovascular Exam Cardiovascular Exam: REGULAR RHYTHM, +S1, +S2 - GI/Abdominal Exam GI & Abdominal Exam: Normal Bowel Sounds, Soft. absent: Tenderness - Rectal Exam Rectal Exam: Deferred - Extremities Exam Extremities exam: Positive for: normal inspection - Back Exam Back exam: NORMAL INSPECTION - Neurological Exam Neurological exam: Abnormal Gait, Alert, CN II-XII Intact, Oriented x3 Additional comments: pronator drift on the right, with fine motor deficits. No sensory changes. Plantar response is upgoing on the right with brisk reflexes. NIHSS = 1 - Psychiatric Exam Psychiatric exam: Agitated, Normal Mood - Skin Skin Exam: Dry, Intact, Normal Color, Warm Results - Vital Signs Recent Vital Signs: Last Vital Signs Temp 98.5 F 12/06/16 06:00 Pulse 72 12/06/16 06:00 Resp 20 12/06/16 06:00 BP 120/70 12/06/16 10:28 Pulse Ox 98 12/06/16 06:00 - Labs Result Diagrams: 12/06/16 04:45 12/06/16 04:10 Labs: Laboratory Results - last 24 hr 12/05/16 12/05/16 12/06/16 19:00 21:43 04:10 WBC RBC Hgb Hct MCV MCH MCHC RDW Plt Count MPV Sodium 143 Potassium 3.8 Chloride 110 H Carbon Dioxide 22 Anion Gap 15 BUN 23 H Creatinine 2.8 H Est GFR ( Amer) 20 Est GFR (Non-Af Amer) 17 POC Glucose (mg/dL) 115 H Random Glucose 87 Calcium 8.5 Iron TIBC % Saturation Total Bilirubin 0.5 AST 25 ALT 35 Alkaline Phosphatase 66 Troponin I 0.06 D Total Protein 6.7 Albumin 3.5 Globulin 3.2 Albumin/Globulin Ratio 1.1 Free T4 Thyroxine (T4) TSH 3rd Generation Urine Color Urine Appearance Urine pH Ur Specific [place] Urine Protein Urine Glucose (UA) Urine Ketones Urine Blood Urine Nitrate Urine Bilirubin Urine Urobilinogen Ur Leukocyte Esterase Urine RBC Urine WBC Ur Epithelial Cells Urine Bacteria Urine Opiates Screen Negative Urine Methadone Screen Negative Ur Barbiturates Screen Negative Ur Phencyclidine Scrn Negative Ur Amphetamines Screen Negative U Benzodiazepines Scrn Negative U Oth Cocaine Metabols Negative U Cannabinoids Screen Negative 12/06/16 12/06/16 12/06/16 04:45 04:45 05:15 WBC 9.9 RBC 3.90 Hgb 10.3 L Hct 32.6 L MCV 83.6 MCH 26.4 MCHC 31.6 RDW 14.5 Plt Count 239 MPV 9.0 Sodium Potassium Chloride Carbon Dioxide Anion Gap BUN Creatinine Est GFR ( Amer) Est GFR (Non-Af Amer) POC Glucose (mg/dL) Random Glucose Calcium Iron TIBC % Saturation Total Bilirubin AST ALT Alkaline Phosphatase Troponin I Total Protein Albumin Globulin Albumin/Globulin Ratio Free T4 1.14 Thyroxine (T4) 6.9 TSH 3rd Generation 0.40 L Urine Color Yellow Urine Appearance Sl cloudy Urine pH 6.0 Ur Specific [place] 1.010 Urine Protein Negative Urine Glucose (UA) Negative Urine Ketones Negative Urine Blood Negative Urine Nitrate Positive H Urine Bilirubin Negative Urine Urobilinogen 0.2 Ur Leukocyte Esterase Small H Urine RBC 0 - 2 Urine WBC 2 - 5 Ur Epithelial Cells 1 - 3 Urine Bacteria Occ Urine Opiates Screen Urine Methadone Screen Ur Barbiturates Screen Ur Phencyclidine Scrn Ur Amphetamines Screen U Benzodiazepines Scrn U Oth Cocaine Metabols U Cannabinoids Screen 12/06/16 12/06/16 07:29 08:13 WBC RBC Hgb Hct MCV MCH MCHC RDW Plt Count MPV Sodium Potassium Chloride Carbon Dioxide Anion Gap BUN Creatinine Est GFR ( Amer) Est GFR (Non-Af Amer) POC Glucose (mg/dL) 96 Random Glucose Calcium Iron 24 L TIBC 233 L % Saturation 10 L Total Bilirubin AST ALT Alkaline Phosphatase Troponin I Total Protein Albumin Globulin Albumin/Globulin Ratio Free T4 Thyroxine (T4) TSH 3rd Generation Urine Color Urine Appearance Urine pH Ur Specific [place] Urine Protein Urine Glucose (UA) Urine Ketones Urine Blood Urine Nitrate Urine Bilirubin Urine Urobilinogen Ur Leukocyte Esterase Urine RBC Urine WBC Ur Epithelial Cells Urine Bacteria Urine Opiates Screen Urine Methadone Screen Ur Barbiturates Screen Ur Phencyclidine Scrn Ur Amphetamines Screen U Benzodiazepines Scrn U Oth Cocaine Metabols U Cannabinoids Screen - Imaging and Cardiology MRI - head Status: Image reviewed by me, Report reviewed by me (Subtle changes in the left frontal lobe consistent with acute-subacute infarct. Left M2 branch stenosis with some distal flow. ) Assessment & Plan (1) Ischemic stroke Assessment and Plan: The patient is at risk for having progression of the stroke due to the continued stenosis. The recommendation is to continue dual antiplatelet therapy , high dose statin, fluids and permissive hypertension in hopes of allowing time to perfuse collaterals. I recommend the followin. Telemetry 2. Echocardiogram with bubble study 3. Permissive hypertension (do not treat BP that is less than 220/110 mm Hg for the next 48 hours); hold antihypertensive meds 4. Fluids: NS at 100 mL/hr 5. Magnesium sulfate 2 grams IV ONCE 6. Aspirin 81 mg and Plavix 75 mg PO daily, will consider switching to integrillin IV if she cannot tolerate PO and/or if she has progressive symptoms 7. Crestor 20 mg PO daily 8. DVT Px 9. PT/OT eval and treat. 10. Case management consult Thank you. Status: Acute Priority: High
[2016-12-06 12:28] LABS: FERRITIN 98.7 ng/mL
[2016-12-06 12:58] LABS: FOLATE > 20.0 ng/mL
--- NOTE | 2016-12-06 14:47 | PN ---
DATE: 12/06/2016 The patient is seen in room 265, bed 1. SUBJECTIVE: The patient was noted around 9 a.m. to have some slurring of speech. For that reason, the patient's house physician was called. It was noted by the nurse to have slight right-sided facial droop and weakness of the right handgrip. The patient was evaluated by the house physician and the certified medical transcriptionist. PHYSICAL EXAMINATION: GENERAL: The patient's speech at this time appears to be forced, rather than dysarthric and the patient is constantly asking for food. VITAL SIGNS: Noted to be the patient is afebrile. Telemetry shows sinus rhythm and sinus bradycardia. Blood pressure is 120/70, 131/75, 141/73; respirations 20, and O2 saturation 98%. BMI is 21.5. HEAD: Normocephalic and atraumatic. HEENT: Shows pinkish pale conjunctivae. Positive thyromegaly. Questionable stridor noted. CHEST: Kyphosis. Positive rhonchi in upper lung forbes anteriorly and occasional wheezing in the right upper lobe noted. CARDIOVASCULAR: S1 and S2. Regular rhythm. ABDOMEN: Soft. Positive bowel sounds. GENITALIA: Female. RECTAL: Deferred. EXTREMITIES: Shows no pitting edema. No John's signs. Questionable right upper and right lower lobe weakness noted, which is unchanged as per yesterday's exam, 4+ to 5-/5. Gait examination not tested. NEUROLOGIC: The patient's speech at this time appears to be hoarse rather than dysarthric and the patient is constantly asking for fruit. DIAGNOSTIC TESTS: From 12/06/2016, WBC 9.9, hemoglobin/hematocrit 10.3/32.6, and platelet 239. Sodium 143, potassium 3.8, chloride 110, CO2 is 22, anion gap 15, BUN 23, and creatinine 2.8. A1c 61. Iron 24. TIBC 233. Iron saturation 10. Troponin 0.06. Blood type A+. The patient was sent for a stat MRI of the brain, results pending. The patient's EKG shows sinus rhythm from today. The patient's case was managed by the certified medical transcriptionist and with consultation from the neurologist. The recommendation was to give aspirin and Plavix, stat MRI brain, 1 L of fluid with 2 g of magnesium. Blood pressure should be controlled on the relatively higher side to be kept systolic around . IMPRESSION: 1. Questionable dysphonia versus hoarseness versus dysarthria. 2. Questionable and possible right upper and lower extremity weakness. 3. Questionable right-sided facial asymmetry. 4. Dysarthria versus slurred speech versus dysphonia versus hoarseness. 5. Questionable mild exacerbation of chronic obstructive pulmonary disease. 6. History of chronic obstructive pulmonary disease. 7. History of hypertension. 8. Questionable transient ischemic infarct versus cerebrovascular accident with transient right-sided weakness. 9. Leukocytosis. 10. Normocytic iron deficiency anemia. 11. Chronic kidney disease stage IV. 12. Prediabetes. 13. Questionable and possible urinary tract infection with pyuria, bacteruria. 14. History of dyslipidemia. 15. Active nicotine addiction. PLAN: At this time, the patient's MRI of the brain will be reviewed when available with Neurology follow up by Dr. Perez. The patient has been ordered repeat CBC and CMP. Urine cultures pending. Current consultation with Cardiology and Neurology. The patient is on Mucomyst and Xopenex nebulizer every 6 hours. The patient is given a dose of Solu-Medrol 125 stat. The patient is on aspirin 81 mg daily, Brovana 15 mcg q. 12 hours. The patient was started IV Venofer 200 mg daily and Lipitor 40 mg daily. The patient has received magnesium sulfate 2 g x1, cefepime 1 g IV q. 12 hours, nicotine patch 14 mg daily. The patient's Norvasc 10 mg will be discontinued at this time with close monitoring of the blood pressure. The patient's blood pressure will be only treated if it is significantly elevated as per Neurology recommendation. Plavix 75 will be continued. Proton pump inhibitors will be continued. The patient has received Solu-Medrol 125 x1 and Zofran IV q. 4 hours. MRI of the brain result is pending, which the patient already had done today. The patient has been updated about her condition, diagnoses, and need for further inpatient hospitalization and management. Physical therapy, occupational therapy, speech therapy, out of bed ordered. At present, the patient will be continued on the telemetry. Chris Brown MD [facility] # [id number]
--- NOTE | 2016-12-06 15:07 | CON ---
DATE: 12/06/2016 HISTORY OF PRESENT ILLNESS: The patient is a 66-year-old woman who presents with dysarthria and right-sided weakness. This is now resolved. The patient's past medical history is notable for history of hypercholesterolemia as well as renal insufficiency. A stress test was performed last week which was a suspicious for ischemia. A cardiac catheterization was not done due to her marked renal insufficiency. The patient denies chest pain, denies shortness of breath, no diabetes mellitus noted. SOCIAL HISTORY: The patient does not actively smoke. REVIEW OF SYSTEMS: A 14-point review of systems was reviewed in detail. No angina. No dyspnea. No pedal edema. PHYSICAL EXAMINATION: VITAL SIGNS: Blood pressure 120/70, heart rate in the 70s, normal sinus rhythm. NECK: Negative JVD. LUNGS: Without rales. HEART: S1 and S2. EXTREMITIES: Without edema. EKG shows normal sinus rhythm with nonspecific ST-T changes. LABORATORY DATA: Troponin is 0.06. The creatinine is 2.8. The hemoglobin is 10.3. IMPRESSION 1. Transient ischemic attack versus cerebrovascular accident. 2. Hypercholesterolemia. 3. Renal insufficiency. 4. High probability for coronary artery disease. PLAN: Given these findings, the patient is scheduled for neurological workup. We will review her echocardiogram. Vidal Mas MD
--- NOTE | 2016-12-06 19:23 | HP ---
HISTORY OF PRESENT ILLNESS: The patient is a 66-year-old female who was brought into the [facility] emergency room late afternoon today by the [facility]. According to the patient's granddaughter, the patient today saw a liver specialist today and then came back home and while patient was sitting down to have her dinner or lunch, the patient was noted to have a sudden difficulty speaking and the patient had slurred speech with right-sided facial asymmetry with possible right-sided weakness which was noted by the patient's granddaughter. The patient herself does not seem to have any recollection and according to the ER physician's evaluation, the patient had difficulty speaking. The patient's family called 911. The patient was also noted to have a right-sided weakness. REVIEW OF SYSTEMS: A 13-system review was done, pertinent positive and negative dictated above. CODE STATUS: FULL CODE. LIVING WILL/ADVANCED DIRECTIVE: None. HEIGHT: 5 feet 4 inches. WEIGHT: 144 pounds. BMI: 21. ALLERGIES: OXYCODONE AND MRI CONTRAST. HOME MEDICATIONS: Protonix 40 mg daily, aspirin 81 mg daily, Norvasc 10 mg daily, Crestor 20 mg daily. MENSTRUAL HISTORY: Postmenopausal. FAMILY HISTORY: Positive for hypertension and coronary artery disease. 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 SOCIAL HISTORY: Social alcohol use. Positive for active smoking, half pack per day. HOME MEDICATIONS: Protonix 40 mg daily, aspirin 81 mg daily, Norvasc 10 mg daily, Crestor 20 mg daily. PAST MEDICAL AND SURGICAL HISTORY: The patient's past medical history is significant for recent abnormal stress test with reversible anteroseptal apical changes with left ventricular ejection fraction of 72%. The patient was scheduled for a cardiac catheterization on 11/30/2016, but the patient could not undergo cardiac catheterization because of abnormal renal function. The patient's past medical history is significant for active nicotine addiction, history of nicotine dependence, history of thyroid nodules, history of gastritis, history of hypertension, history of chronic kidney disease stage IV, history of questionable angina with chest pain, history of coronary artery disease, history of angioplasty, history of gastroesophageal reflux, history of hypokalemia, history of anemia, history of urinary tract infection with proteinuria, pyuria, hematuria, bacteriuria, history of tachycardia, history of hyperglycemia, history of prediabetes, history of thyromegaly, history of colonic diverticulosis, history of prominent hyperpigmented right retinoid, history of hiatal hernia, history of thyromegaly, history of right thyroid nodule, history of bibasilar infiltrates and atelectasis, history of bilateral upper lobe emphysema, history of endoscopy done in 10/2016, history of hypertensive cardiovascular disease, history of dyslipidemia, history of chronic obstructive pulmonary disease, history of constipation, history of emphysema, history of hypovitaminosis D, history of osteoporosis, history of degenerative joint disease, history of cholecystotomy, history of fine needle aspiration biopsy, history of hysterectomy, history of osteoarthritis, history of questionable seizure disorder according to the patient, history of questionable sleep apnea, history of angioplasty, history of left shoulder surgery, history of thyroid nodule biopsy showing follicular cells and colloid material suggestive of hyperplastic thyroid nodule, multinodular goiter, history of *------*, history of noncompliance, history of coronary angioplasty, history of seizure disorder according to [facility] triage notes, history of osteopenia, history of laparoscopic cholecystectomy, history of cholelithiasis, history of questionable peripheral vascular disease, history of OXYCODONE, SEAFOOD AND MRI ALLERGIES. PHYSICAL EXAMINATION: GENERAL: The patient is seen in a stretcher #1 in the emergency room. The patient was seen in the laboratory in the ER for the above symptoms. Code stroke was called. Code stroke on-call neurology was consulted. Initial plan was to start tPA in the ER, but the patient's symptoms started resolving, so tPA was held after discussing with the neurologist by the ER physician and the patient was given Plavix 300 mg and aspirin 81 mg daily and the patient was sent for CAT scan of the head and MRI. The patient was seen in stretcher #1 with patient's granddaughter at bedside. The patient was lying in the bed. The patient's speech appeared now to be clear. The patient was seen around 8:30 p.m. The patient has some right upper extremity and right lower extremity weakness. VITAL SIGNS: T-max, the patient is afebrile; heart rate is 71 to 96 to 95; blood pressure ranging from 126/81 to 147/79; respirations 18; O2 sat 100%. HEENT: Head is normocephalic and atraumatic. HEENT examination shows pinkish pale conjunctivae. Dirty sclerae. Questionable soft carotid bruits. CHEST: Kyphosis. LUNGS: Positive rhonchi bilaterally in upper lung forbes. No wheezing. CARDIOVASCULAR: S1 and S2, regular rhythm. ABDOMEN: Soft. Positive bowel sounds. Positive epigastric tenderness. No guarding. No rigidity. No costovertebral angle tenderness. GENITALIA: Female. RECTAL: Deferred. EXTREMITIES: Shows no pitting edema. No calf tenderness. No Homans sign. NEUROLOGIC: The patient is alert, awake, oriented x3. Cranial nerves II through XII limited. There is very questionable right-sided facial asymmetry. Tongue appears to be grossly midline. There is weakness of the right upper extremity with 4+ to 5-/5 with slightly decreased handgrip. Right lower extremity weakness is present with 4+ to 5-/5. Left upper and lower extremity strength is 5/5. There is a question of right upper extremity drift noted. GAIT: Could not be tested. VASCULAR: Palpable pulses. PSYCHIATRIC: Not applicable. DIAGNOSTIC DATA: WBC is 12.1, hemoglobin and hematocrit is 11 and 34, and platelets are 260. PT and PTT 11.2 and 29.3. Sodium 142, potassium 3.6, chloride 108, CO2 of 22, anion gap 16, BUN 24, creatinine 2.7, GFR 21, glucose 161, hemoglobin A1c 6.1, LDH 316, troponin is 0.03, cholesterol 106, LDL 50, HDL 34. Urine drug screen was negative. Blood type A positive. The patient underwent chest x-ray, CT of the head, MRA of the head and neck as recommended by Neurology. Chest x-ray, no active disease. The patient's CT of the head shows left maxillary sinus complete opacification. The patient had an MRA of the head done which showed left anterior cerebral artery stenosis, left middle cerebral artery stenosis noted. Mild stenosis of the distal right internal carotid artery was noted on the MRA of the brain. MRA of the neck shows 40% stenosis with proximal right internal carotid artery, questionable stenosis or in-plane saturation of the right vertebral artery. The patient's EKG was reviewed, which is sinus rhythm, nonspecific ST changes in the lead I, lead II, and lateral leads. The patient was seen and evaluated by the ER physician, Dr. Tellez. The patient's condition was managed in the ER with consultation with Neurology on-call *------*. IMPRESSION AND PLAN:1. Dysarthria with speech dysfunction and right-sided hemiparesis and weakness (resolving versus resolved). 2. Questionable transient ischemic infarct verus cardiovascular accident. 3. History of hypertension. 4. History of dyslipidemia. 5. History of chronic obstructive pulmonary disease. 6. History of emphysema. 7. History of active nicotine dependence. 8. History of hypovitaminosis D. 9. History of osteoporosis. 10. Leukocytosis. 11. Normocytic anemia. 12. Chronic kidney disease, stage IV. 13. Prediabetes with hyperglycemia and hemoglobin A1c of 6.1. 14. Abnormal myocardial stress testing. 15. History of coronary artery disease and coronary angioplasty. PLAN: At this time, the patient to be admitted to telemetry. Cardiac enzymes ordered. Thyroid panel, vitamin D ordered. Urine culture ordered. Neurology and Cardiology consultation ordered. The patient has been ordered neuro checks. The patient has been ordered seizure precautions. The patient has been ordered Mucomyst nebulizer treatment with Xopenex nebulizer treatment every 6 hours around the clock, Brovana 15 mcg twice a day. The patient was given aspirin 162 stat. The patient will be continued on aspirin 81 daily. The patient was started on Lipitor 40 mg daily. The patient was given magnesium sulfate 2 g as per the Neurology recommendation. The patient was started on empiric antibiotic 1 g IV q. 12. Nicotine patch 14 mg daily. Norvasc 10 mg daily. The patient received Plavix 300 mg stat in the ER. The patient will be continued on Plavix 75 daily, Protonix 20 twice a day, Zofran 4 IV q. 4. Repeat EKG, repeat cardiac enzymes ordered. The patient's condition was discussed with the nurses in the emergency room. The patient cleared the swallow evaluation. The patient was put on neuro checks, seizure precaution, renal diet, repeat cardiac enzymes, repeat EKG ordered. Speech evaluation ordered. The patient will be ordered physical therapy, occupational therapy. The patient was seen in the emergency room with the patient's granddaughter. The patient was explained and counseled about cessation of smoking, compliance with medications, diet, activity. The patient and the granddaughter were explained about the possibilities of cerebral infarct versus [id number] which they acknowledged to understand. The patient is to be admitted to telemetry. The patient's further management will be depending upon the patient's clinical condition, hemodynamic status, as per the patient's response to therapeutic intervention,as per the patient's diagnostic data, and as per recommendation by Cardiology and Neurology. Dictated and electronically signed, not read. Chris Brown MD
[2016-12-07 00:26] VITALS: RESP 18
--- NOTE | 2016-12-07 00:56 | CARD ---
APPROVED REPORT EKG Measurement Heart [id number] <Conclusion> Normal sinus rhythm Normal ECG
[2016-12-07] MEDS: Pantoprazole 20 mg EC Tab PO SCH (05:08)
[2016-12-07 06:11] VITALS: BP 122/76; PULSE 75; TEMP 98.9
--- NOTE | 2016-12-07 06:57 | CP.PCM.PN ---
Subjective - Date & Time of Evaluation Date of Evaluation: 12/07/16 Time of Evaluation: 06:55 - Subjective Subjective: Internal medicine progress note for Dr. Yordan Beasley, PGY-1 Pt S & E at bedside. Pt reports no recurrence of symptoms of slurred speech since yesterday. Tolerating diet. Moving bowels, voiding. Breathing is easier today than yesterday. Denies N/V/F/C, SOB, CP, palpitations, SOMMER, changes in vision, changes in sensation or motor strength. Objective - Vital Signs/Intake and Output Vital Signs (last 24 hours): Temp Pulse Resp BP Pulse Ox 98.9 F 75 18 122/76 98 12/07/16 06:00 12/07/16 06:00 12/07/16 06:00 12/07/16 06:00 12/06/16 06:00 Intake and Output: 12/06/16 12/07/16 18:59 06:59 Intake Total 400 Balance 400 - Medications Medications: Current Medications Acetylcysteine (Acetylcysteine 20%) 4 ml IH Q6H [facility] Last Admin: 12/06/16 19:48 Dose: 4 ml Arformoterol Tartrate (Brovana) 15 mcg IH [id number] [facility] Last Admin: 12/06/16 19:48 Dose: 15 mcg Aspirin (Aspirin Chewable) 81 mg PO DAILY [facility] Last Admin: 12/06/16 09:36 Dose: 81 mg Atorvastatin Calcium (Lipitor) 40 mg PO DAILY [facility] Last Admin: 12/06/16 16:03 Dose: 40 mg Clopidogrel Bisulfate (Plavix) 75 mg PO DAILY [facility] Last Admin: 12/06/16 09:37 Dose: 75 mg Cefepime HCl (Maxipime 1gm) 1 gm in 100 mls @ 100 mls/hr IVPB Q12 [facility] PRN Reason: Protocol Last Admin: 12/06/16 22:01 Dose: 100 mls/hr Iron Sucrose 200 mg/ Sodium (Chloride) 110 mls @ 110 mls/hr IVPB DAILY [facility] Stop: 12/08/16 10:59 Last Admin: 12/06/16 13:03 Dose: 110 mls/hr Levalbuterol HCl (Xopenex) 0.63 mg IH Q6H [facility] Last Admin: 12/06/16 19:49 Dose: 0.63 mg Nicotine (Nicoderm Cq) 1 patch TD DAILY [facility] Last Admin: 12/06/16 11:38 Dose: Not Given Ondansetron HCl (Zofran Inj) 4 mg IVP Q4H PRN PRN Reason: Nausea/Vomiting Pantoprazole Sodium (Protonix Ec Tab) 20 mg PO 0600,1600 [facility] Last Admin: 12/07/16 05:08 Dose: 20 mg - Labs Labs: 12/06/16 04:45 12/06/16 04:10 PT 11.2 Seconds (9.9-11.8) 12/05/16 16:30 INR 1.04 (0.93-1.08) 12/05/16 16:30 APTT 29.3 Seconds (23.7-30.8) 12/05/16 16:30 - Constitutional Appears: Non-toxic, No Acute Distress - Head Exam Head Exam: ATRAUMATIC, NORMAL INSPECTION, NORMOCEPHALIC - Eye Exam Eye Exam: EOMI, Normal appearance - ENT Exam ENT Exam: Mucous Membranes Moist, Normal Exam - Neck Exam Neck Exam: Normal Inspection - Respiratory Exam Respiratory Exam: Clear to Ausculation Bilateral, NORMAL BREATHING PATTERN - Cardiovascular Exam Cardiovascular Exam: REGULAR RHYTHM, +S1, +S2 - GI/Abdominal Exam GI & Abdominal Exam: Soft, Normal Bowel Sounds. absent: Tenderness - Extremities Exam Extremities Exam: Normal Inspection. absent: Pedal Edema - Neurological Exam Neurological Exam: Alert, Awake, CN II-XII Intact, Oriented x3. absent: Motor Sensory Deficit - Psychiatric Exam Psychiatric exam: Normal Affect, Normal Mood - Skin Skin Exam: Dry, Intact, Normal Color, Warm Assessment and Plan - Assessment and Plan (Free Text) Assessment: 66F w/PMH of HTN, CAD, TANA, osteoporosis, seizure disorder, CKD, hx of right lung nodule and HLD with TIA on admission and slurred speech on hospital day 1 w /o symptoms since yesterday, currently stable Plan: TIA VSS Neuro checks Q2H Seizure precautions Trops neg x [address] brain neg MRA brain- Irregularity of distal left vertebral artery w/mild stenosis, stenosis of distal A1 segment of left anterior cerebral artery, stenosis of an M2 branch of the left middle cerebral artery MRA neck- mild (~40%) stenosis of proximal right internal carotid artery, increased tortuosity of B/L vertebral arteries. Decreased signal intensity w/in mid right vertebral artery, suggestive of stenosis or in-plane saturation. This could be further evaluated w/post contrast MRA or CTA. 3. Heterogeneous signal intensity in the region of right thyroid lobe, consistent w/thyroid nodules, when correlated with the previous CT. Nonemergent ultrasonography is recommended. Brain MRI- Equivocal findings on diffusion imaging which may represent minimal subacute cortical infarcts in left posterior frontal lobe. Neuro following HTN/CAD/HLD Trops neg x 3 Norvasc- held for permissive HTN per neuro ASA Lipitor Plavix Cardio following Recurrent UTI Cefepime U/A pos for nitrate, sm LE FU Urine Cx- pending CKD (Chronic) Cr at baseline Monitor COPD Mucomyst Brovana Xopenex Anemia Hgb 9.9 from 10.3 Hct 32.6 from 32.6 Ferritin 98.7 Folate >20 Vit D level- 31.2 Fe 24 TIBC 233 %sat 10 Giving Fe Monitor Nicotine dependence Nicotine patch Smoking cessation counseling GI/DVT ppx Protonix Contraindications to VTE ppx 2/2 stroke Dispo PT/OT OOBTC with assistance Speech eval-no intervention required Renal diet DW attending Gale, PGY-1
[2016-12-07 07:00] LABS: ALB/GLOB RATIO 1.2 (1.1-1.8); ALBUMIN 3.7 g/dL (3.0-4.8); CALCIUM 8.7 mg/dL (8.4-10.5)
[2016-12-07] MEDS: Arformoterol 15 mcg/2 ml Inh Sol IH SCH (07:30)
[2016-12-07 07:41] LABS: MAGNESIUM 2.3 mg/dL (1.7-2.2)
[2016-12-07] MEDS: Acetylcysteine 20% Inhal Soln (4ml) IH SCH (09:22)
[2016-12-07] MEDS: Levalbuterol 0.63 MG/3 ML Inhal Soln UD IH SCH (09:22)
[2016-12-07 09:45] LABS: HEMOGLOBIN 9.8 g/dL (12.0-16.0); MEAN CELL VOLUME 83.4 fl (80.0-105.0); MEAN CORPUSCULAR HEMOGLOBIN 26.6 pg (25.0-35.0); MEAN CORPUSCULAR HGB CONC 31.9 g/dl (31.0-37.0); MEAN PLATELET VOLUME 9.1 fl (7.0-11.0); RBC 3.68 10^6/uL (3.5-6.1); RED CELL DISTRIBUTION WIDTH 14.1 % (11.5-14.5); WHITE BLOOD COUNT 13.8 10^3/ul (4.5-11.0)
--- NOTE | 2016-12-07 10:58 | CP.PCM.DIS ---
Provider - Provider Date of Admission: 12/05/16 17:13 Attending physician: Chris Brown MD Primary care physician: Chris Brown MD Consults: Neuro-Ana Cardio-Mas Time Spent in preparation of Discharge (in minutes): 35 Hospital Course - Lab Results Lab Results: Most Recent Lab Values WBC 13.8 10^3/ul (4.5-11.0) H D 12/07/16 06:00 RBC 3.68 10^6/uL (3.5-6.1) 12/07/16 06:00 Hgb 9.8 g/dL (12.0-16.0) L 12/07/16 06:00 Hct 30.7 % (36.0-48.0) L 12/07/16 06:00 MCV 83.4 fl (80.0-105.0) 12/07/16 06:00 MCH 26.6 pg (25.0-35.0) 12/07/16 06:00 MCHC 31.9 g/dl (31.0-37.0) 12/07/16 06:00 RDW 14.1 % (11.5-14.5) 12/07/16 06:00 Plt Count 225 10^3/uL (120.0-450.0) 12/07/16 06:00 MPV 9.1 fl (7.0-11.0) 12/07/16 06:00 Gran % 67.9 % (50.0-68.0) 12/05/16 16:30 Lymph % (Auto) 27.6 % (22.0-35.0) 12/05/16 16:30 [place] % (Auto) 3.8 % (1.0-6.0) 12/05/16 16:30 Eos % (Auto) 0.6 % (1.5-5.0) L 12/05/16 16:30 Baso % (Auto) 0.1 % (0.0-3.0) 12/05/16 16:30 Gran # 8.23 (1.4-6.5) H 12/05/16 16:30 Lymph # 3.4 (1.2-3.4) 12/05/16 16:30 [place] # 0.5 (0.1-0.6) 12/05/16 16:30 Eos # 0.1 (0.0-0.7) 12/05/16 16:30 Baso # 0.01 K/mm3 (0.0-2.0) 12/05/16 16:30 PT 11.2 Seconds (9.9-11.8) 12/05/16 16:30 INR 1.04 (0.93-1.08) 12/05/16 16:30 APTT 29.3 Seconds (23.7-30.8) 12/05/16 16:30 Sodium 143 mmol/L (132-148) 12/07/16 06:00 Potassium 4.3 mmol/L (3.6-5.0) 12/07/16 06:00 Chloride 110 mmol/L (98-107) H 12/07/16 06:00 Carbon Dioxide 20 mmol/L (21-33) L 12/07/16 06:00 Anion Gap 17 (10-20) 12/07/16 06:00 BUN 24 mg/dL (7-21) H 12/07/16 06:00 Creatinine 2.6 mg/dL (0.5-1.4) H 12/07/16 06:00 Est GFR ( Amer) 22 12/07/16 06:00 Est GFR (Non-Af Amer) 18 12/07/16 06:00 POC Glucose (mg/dL) 210 mg/dL (65-110) H 12/06/16 16:26 Random Glucose 128 mg/dL (70-110) H 12/07/16 06:00 Hemoglobin A1c 6.1 % (4.2-6.5) 12/05/16 16:30 Calcium 8.7 mg/dL (8.4-10.5) 12/07/16 06:00 Phosphorus 3.7 mg/dL (2.5-4.5) 12/07/16 06:00 Magnesium 2.3 mg/dL (1.7-2.2) H 12/07/16 06:00 Iron 24 ug/dL (45-180) L 12/06/16 08:13 TIBC 233 ug/dL (265-497) L 12/06/16 08:13 % Saturation 10 % (20-55) L 12/06/16 08:13 Ferritin 98.7 ng/mL 12/06/16 08:13 Total Bilirubin 0.3 mg/dL (0.2-1.3) 12/07/16 06:00 AST 26 U/L (15-39) 12/07/16 06:00 ALT 28 U/L (7-56) 12/07/16 06:00 Alkaline Phosphatase 63 U/L (38-133) 12/07/16 06:00 Lactate Dehydrogenase 316 U/L (333-699) L 12/05/16 16:30 Total Creatine Kinase 41 U/L (35-230) 12/05/16 16:30 Troponin I 0.05 ng/mL 12/06/16 11:00 Total Protein 6.8 g/dL (5.8-8.3) 12/07/16 06:00 Albumin 3.7 g/dL (3.0-4.8) 12/07/16 06:00 Globulin 3.1 gm/dL 12/07/16 06:00 Albumin/Globulin Ratio 1.2 (1.1-1.8) 12/07/16 06:00 Triglycerides 110 mg/dL (35-160) 12/05/16 16:30 Cholesterol 106 mg/dL (130-200) L 12/05/16 16:30 LDL Cholesterol Direct 50 mg/dL (0-129) 12/05/16 16:30 HDL Cholesterol 34 mg/dL (29-60) 12/05/16 16:30 Vitamin B12 415 pg/mL (239-931) 12/06/16 08:13 25-OH Vitamin D Total 31.2 NG/ML (30.0-100.0) 12/06/16 04:45 Folate > 20.0 ng/mL 12/06/16 08:13 Free T4 1.14 ng/dL (0.78-2.19) 12/06/16 04:45 Thyroxine (T4) 6.9 ug/dL (5.5-11.0) 12/06/16 04:45 TSH 3rd Generation 0.40 mIU/mL (0.46-4.68) L 12/06/16 04:45 Urine Color Yellow (YELLOW) 12/06/16 05:15 Urine Appearance Sl cloudy (CLEAR) 12/06/16 05:15 Urine pH 6.0 (4.7-8.0) 12/06/16 05:15 Ur Specific [place] 1.010 (1.005-1.035) 12/06/16 05:15 Urine Protein Negative mg/dL (<30 mg/dL) 12/06/16 05:15 Urine Glucose (UA) Negative mg/dL (NEGATIVE) 12/06/16 05:15 Urine Ketones Negative mg/dL (NEGATIVE) 12/06/16 05:15 Urine Blood Negative (NEGATIVE) 12/06/16 05:15 Urine Nitrate Positive (NEGATIVE) H 12/06/16 05:15 Urine Bilirubin Negative (NEGATIVE) 12/06/16 05:15 Urine Urobilinogen 0.2 E.U./dL (<1 E.U./dL) 12/06/16 05:15 Ur Leukocyte Esterase Small [place]/uL (NEGATIVE) H 12/06/16 05:15 Urine RBC 0 - 2 /hpf (0-2) 12/06/16 05:15 Urine WBC 2 - 5 /hpf (0-6) 12/06/16 05:15 Ur Epithelial Cells 1 - 3 /hpf (0-5) 12/06/16 05:15 Urine Bacteria Occ (NEG) 12/06/16 05:15 Urine Opiates Screen Negative (NEGATIVE) 12/05/16 19:00 Urine Methadone Screen Negative (NEGATIVE) 12/05/16 19:00 Ur Barbiturates Screen Negative (NEGATIVE) 12/05/16 19:00 Ur Phencyclidine Scrn Negative (NEGATIVE) 12/05/16 19:00 Ur Amphetamines Screen Negative (NEGATIVE) 12/05/16 19:00 U Benzodiazepines Scrn Negative (NEGATIVE) 12/05/16 19:00 U Oth Cocaine Metabols Negative (NEGATIVE) 12/05/16 19:00 U Cannabinoids Screen Negative (NEGATIVE) 12/05/16 19:00 Blood Type A POSITIVE 12/05/16 16:30 Antibody Screen Negative 12/05/16 16:30 BBK History Checked Patient has bt 12/05/16 16:30 - Hospital Course Hospital Course: 66F w/PMH of HTN, CAD, TANA, osteoporosis, seizure disorder, CKD, hx of right lung nodule and HLD presents to the hospital for slurred speech and right sided facial droop. Pt code stroke initiated. CT brain neg, MRA of head and neck positive for stenosis of L anterior cerebral artery, L middle cerebral arty, proximal right internal carotid artery, irregularity of distal left vertebral artery and tortuosity of B/L vertebral arteries + heterogenous signal intensity in region of R thyroid lobe (seen on previous exams). Pt started on ASA, trops trended- neg x 3, speech and swallow evals performed- pt passed. Neurology saw/ evaluated pt with recs for antiplatelet therapy x 2, Magnesium 2gm, & permissive HTN x 24H. On hospital day 1, pt had a recurrence of symptoms- slurred speech prior to brain MRI. Brain MRI w/Equivocal findings on diffusion imaging which may represent minimal subacute cortical infarcts in the left posterior frontal lobe. Pt also with recurrent UTI- treated with antibiotics. Pt placed on nicotine patch for tobacco use. Pt seen/evaluated by cardio as well - trops neg x 3, placed on Lipitor. COPD regimen continued from home, pt found to be wheezing on hospital day 1, given high dose steroids x 1 with resolution of symptoms. Pt stable, ready for discharge home on hospital day 2 on ASA, statin, plavix as per neurology with instruction to follow up with outpatient neurologist and Dr. Brown within 1 week after discharge. Prescriptions as per JUN. Diagnoses: TIA, HTN, HLD, CAD, thyroid nodules, osteoporosis, seizure d/o, CKD, R middle lobe nodule - Date & Time of H&P Date of H&P: 12/05/16 Time of H&P: 18:29 Discharge Exam - Head Exam Head Exam: ATRAUMATIC, NORMAL INSPECTION, NORMOCEPHALIC - Eye Exam Eye Exam: EOMI, Normal appearance - ENT Exam ENT Exam: Mucous Membranes Moist, Normal Exam - Neck Exam Neck exam: Full Rom, Normal Inspection - Respiratory Exam Respiratory Exam: Clear to PA & Lateral, NORMAL BREATHING PATTERN, UNREMARKABLE. absent: Rales, Rhonchi, Wheezes, Respiratory Distress - Cardiovascular Exam Cardiovascular Exam: REGULAR RHYTHM, +S1, +S2 - GI/Abdominal Exam GI & Abdominal Exam: Normal Bowel Sounds, Soft, Unremarkable. absent: Tenderness - Extremities Exam Extremities exam: full ROM, normal inspection - Neurological Exam Neurological exam: Alert, CN II-XII Intact, Oriented x3 Additional comments: Voice no longer hoarse, no slurred speech - Psychiatric Exam Psychiatric exam: Normal Affect, Normal Mood - Skin Skin Exam: Dry, Intact, Normal Color, Warm Discharge Plan - Discharge Medications Prescriptions: amLODIPine [Norvasc] 10 mg PO DAILY #30 Arformoterol [Brovana] 15 mcg IH [id number] #60 Aspirin [Adult Low Dose Aspirin EC] 81 mg PO DAILY #30 Clopidogrel [Plavix] 75 mg PO DAILY #30 tab Methylprednisolone [Medrol Dose Pack (21 tabs)] See Taper PO DAILY #21 mg Pantoprazole [Protonix EC Tab] 40 mg PO 0600,1600 #60 ect Rosuvastatin Calcium [Crestor] 20 mg PO DAILY #30 Varenicline Tartrate [Chantix] 0.5 mg PO DAILY #11 tablet Varenicline Tartrate [Chantix] 1 mg PO BID #44 tablet - Follow Up Plan Condition: STABLE Disposition: HOME/ ROUTINE Instructions: Transient Ischemic Attack (DC), How to Stop Smoking (DC), Chronic Kidney Disease (DC), Renal Failure Diet (DC), Cigarette Smoking and Your Health (GEN), Emphysema (DC), COPD (Chronic Obstructive Pulmonary Disease) (DC), Ischemic Stroke (DC), Chronic Hypertension (DC), Self Care Measures After a Stroke (DC), Secondhand Smoke Exposure in Children (GEN), Hypertensive Crisis (DC), Impaired Kidney Function (DC), How Your Lungs Work (DC), Stroke (DC) Additional Instructions: Please follow up with Dr. Brown next week, call the office to schedule an appointment. Please call Dr. Sadler and schedule an appointment to follow up after TIA. Please stop smoking. If you have a recurrence of symptoms, please return to hospital. DISCHARGE HOME FOLLOW UP WITHIN 1 WEEK. DISCHARGE MEDS PER UPDATED AMBULATORY ORDERS. STOP SMOKING Referrals: Chris Brown MD [Primary Care Provider] - 1 Week (DISCHARGE HOME FOLLOW UP WITHIN 1 WEEK. DISCHARGE MEDS PER UPDATED AMBULATORY ORDERS. STOP SMOKING) Nimesh Sadler MD [Staff Provider] -
--- NOTE | 2016-12-07 11:33 | CP.PCM.PN ---
Subjective - Date & Time of Evaluation Date of Evaluation: 12/07/16 Time of Evaluation: 11:31 - Subjective Subjective: Mrs. Streeter was seen and examined today at bedside. She was found in NAD and had no complaints. There were no acute events overnight. Objective - Vital Signs/Intake and Output Vital Signs (last 24 hours): Temp Pulse Resp BP Pulse Ox 98.9 F 75 18 122/76 98 12/07/16 06:00 12/07/16 06:00 12/07/16 06:00 12/07/16 06:00 12/06/16 06:00 Intake and Output: 12/07/16 12/07/16 06:59 18:59 Intake Total 400 Balance 400 - Medications Medications: Current Medications Acetylcysteine (Acetylcysteine 20%) 4 ml IH Q6H [facility] Last Admin: 12/07/16 09:22 Dose: Not Given Arformoterol Tartrate (Brovana) 15 mcg IH [id number] [facility] Last Admin: 12/07/16 07:30 Dose: 15 mcg Aspirin (Aspirin Chewable) 81 mg PO DAILY [facility] Last Admin: 12/07/16 10:26 Dose: 81 mg Atorvastatin Calcium (Lipitor) 40 mg PO DAILY [facility] Last Admin: 12/07/16 10:26 Dose: 40 mg Clopidogrel Bisulfate (Plavix) 75 mg PO DAILY [facility] Last Admin: 12/07/16 10:26 Dose: 75 mg Cefepime HCl (Maxipime 1gm) 1 gm in 100 mls @ 100 mls/hr IVPB Q12 [facility] PRN Reason: Protocol Last Admin: 12/06/16 22:01 Dose: 100 mls/hr Iron Sucrose 200 mg/ Sodium (Chloride) 110 mls @ 110 mls/hr IVPB DAILY [facility] Stop: 12/08/16 10:59 Last Admin: 12/07/16 10:26 Dose: 110 mls/hr Levalbuterol HCl (Xopenex) 0.63 mg IH Q6H [facility] Last Admin: 12/07/16 09:22 Dose: Not Given Nicotine (Nicoderm Cq) 1 patch TD DAILY [facility] Last Admin: 12/07/16 10:26 Dose: 1 patch Ondansetron HCl (Zofran Inj) 4 mg IVP Q4H PRN PRN Reason: Nausea/Vomiting Pantoprazole Sodium (Protonix Ec Tab) 20 mg PO 0600,1600 [facility] Last Admin: 12/07/16 05:08 Dose: 20 mg - Labs Labs: 12/07/16 06:00 12/07/16 06:00 PT 11.2 Seconds (9.9-11.8) 12/05/16 16:30 INR 1.04 (0.93-1.08) 12/05/16 16:30 APTT 29.3 Seconds (23.7-30.8) 12/05/16 16:30 - Neurological Exam Neurological Exam: Alert, Awake, CN II-XII Intact, Normal Gait, Oriented x3, Reflexes Normal Neuro motor strength exam: Left Upper Extremity: 5, Right Upper Extremity: 5, Left Lower Extremity: 5, Right Lower Extremity: 5 Assessment and Plan (1) Ischemic stroke Assessment & Plan: Mild stroke, likely due to intracranial atherosclerotic disease. Will continue dual antiplatelet therapy and high dose statin as is the standard of care with [facility]. Follow PT/OT recommendations regarding disposition. No further recommendations or evaluations are necessary in the inpatient setting at this time. Thank you. Status: Acute
[2016-12-07] MEDS: Cefepime 1gm in NS 100ml 1 GM/100 ML BAG IVPB SCH (13:06)
--- NOTE | 2016-12-07 14:16 | PN ---
DATE: 12/07/2016 SUBJECTIVE: The patient is ambulating on the nursing station and floor without chest pain. PHYSICAL EXAMINATION: VITAL SIGNS: Blood pressure 122/76, heart rate in the 70s. NECK: Negative JVD. LUNGS: Without rales. HEART: Reveals S1, S2. EXTREMITIES: Without edema. LABORATORY DATA: Hemoglobin is 9.8. Chemistries, BUN and creatinine are 24 and 2.6. IMPRESSION: 1. Status post transient ischemic attack. 2. Coronary artery disease. 3. Renal insufficiency. 4. Diabetes mellitus. 5. Hypercholesterolemia. Given these findings, the patient is doing much better. She has been discharged. She is going home on dual antiplatelet therapy as well as statin therapy. Vidal Mas MD
--- NOTE | 2016-12-07 23:43 | CARD ---
APPROVED REPORT EKG Measurement Heart [id number] <Conclusion> Normal sinus rhythm Normal ECG
--- NOTE | 2016-12-08 13:37 | DS ---
DATE: FINAL PROGRESS NOTE AND DISCHARGE SUMMARY LOCATION: The patient was seen in room 265, bed 1. HISTORY OF PRESENT ILLNESS: The patient overnight and the last 24 hours was event free. The patient did not have speech problems, did not have any dysarthria, did not have any aphasia, and did not have any weakness. The patient's voice is back to normal today. The patient is able to communicate clearly without any above abnormalities. The patient was seen with the patient's granddaughter. The patient is seems lying and then the patient was seem standing in room 265, bed 1. PHYSICAL EXAMINATION: VITAL SIGNS: The patient is afebrile. Her telemetry shows sinus rhythm, heart rate in 70s and 80s; blood pressure systolic 130s to 140s and diastolic in 70s and 80s; respirations 18 to 22, and O2 saturation is in mid 90s to high 90s. HEAD: Normocephalic and atraumatic. HEENT: Shows pinkish pale conjunctivae. No facial asymmetry noted today. Tongue is midline. Soft, carotid bruit. CHEST: Kyphosis. LUNG: Positive rhonchi in upper lung forbes. No stridor noted. CARDIOVASCULAR: S1 and S2. Regular rhythm. ABDOMEN: Soft. Positive bowel sounds. GENITALIA: Female. RECTAL: Deferred. EXTREMITIES: Shows no pitting edema. No calf tenderness. No Homans sign. NEUROLOGIC: The patient is alert, awake, and oriented x3. She is able to move upper and lower extremities without assistance. There is no gross motor deficit noted on the upper and lower extremity on the right side and left side. The patient is able to stand independently. The patient is able to walk without any assistance. DIAGNOSTIC STUDIES: The patient had an MRI of the brain done yesterday, which shows some subacute infarcts. LABORATORY STUDIES: Repeat labs were reviewed. The patient's case was discussed with urology Dr. Perez. The patient was cleared for discharge by neurology. FINAL IMPRESSION: 1. Subacute ischemic infarct and cerebrovascular accident. 2. Dysarthria (resolved). 3. Dysphonia (resolved). 4. Questionable stridor, (resolved). 5. History of hypertension and active nicotine addiction. 6. Steroid induced leukocytosis. 7. Normocytic iron deficiency anemia. 8. History of dyslipidemia, osteoporosis, and hypovitaminosis D. 9. Emphysema and chronic obstructive pulmonary disease. 10. History of poor compliance and noncompliance. 11. Subacute left-sided ischemic stroke and cerebrovascular accident. 12. History of thyroid nodule. 13. Chronic kidney disease stage IV. PLAN: At this time, the patient is cleared by neurology for discharge. The patient will be discharged home. DISCHARGE MEDICATIONS: Norvasc 5 mg or 10 mg daily, Protonix 40 mg daily, Ecotrin 81 mg daily and Plavix 75 mg daily. The patient is to resume osteoporosis medicines at home. The patient is to resume vitamin D at home. The patient is to resume her nebulizer medications at home. DISCHARGE INSTRUCTIONS: Discharge follow up with Dr. Brown within one week. The patient was counseled about cessation of smoking. The patient was advised to take medication as per the updated discharge ambulatory orders, which were submitted to [facility] as per the patient's request. Time spent in the entire discharge process more than 45 minutes. Dictated electronically signed, not read. Chris Brown MD
== END 2016-12-07 13:56 | disposition home or self-care (01) | DRG 65 ==
LOC: ED 15:49 → ERH 17:13 → 2RNO 21:14
PROVIDERS: ADMIT Internal Medicine; ATTEND Internal Medicine
DX: I63.9 Cerebral infarction, unspecified (principal); N18.4 Chronic kidney disease, stage 4 (severe); J44.9 Chronic obstructive pulmonary disease, unspecified; N39.0 Urinary tract infection, site not specified; I12.9 Hypertensive chronic kidney disease with stage 1 through stage 4 chronic kidney disease, or unspecified chronic kidney disease; D50.9 Iron deficiency anemia, unspecified; F17.210 Nicotine dependence, cigarettes, uncomplicated; R29.705 NIHSS score 5; R47.01 Aphasia; R47.81 Slurred speech; I25.10 Atherosclerotic heart disease of native coronary artery without angina pectoris; G47.33 Obstructive sleep apnea (adult) (pediatric); M81.0 Age-related osteoporosis without current pathological fracture; G40.909 Epilepsy, unspecified, not intractable, without status epilepticus; E78.5 Hyperlipidemia, unspecified; R91.1 Solitary pulmonary nodule; E78.00 Pure hypercholesterolemia, unspecified; E04.1 Nontoxic single thyroid nodule; E55.9 Vitamin D deficiency, unspecified; Z95.5 Presence of coronary angioplasty implant and graft; Z79.82 Long term (current) use of aspirin

== ENCOUNTER 2017-07-31 11:57 | Day surgery (SDC) | payer MEDICARE ==
[2017-07-26 08:57] VITALS: BMI 23.3
[2017-07-31 12:39] LABS: BASO # 0.01 K/mm3 (0.0-2.0); BASO % 0.1 % (0.0-3.0); EOS # 0.2 (0.0-0.7); EOS % 1.3 % (1.5-5.0); GRAN # 6.98 (1.4-6.5); GRAN % 61.3 % (50.0-68.0); HEMOGLOBIN 12.7 g/dL (12.0-16.0); LYMPH # 3.9 (1.2-3.4); LYMPH % 34.4 % (22.0-35.0); MEAN CELL VOLUME 83.2 fl (80.0-105.0); MEAN CORPUSCULAR HEMOGLOBIN 27.4 pg (25.0-35.0); MEAN PLATELET VOLUME 8.7 fl (7.0-11.0); MONO # 0.3 (0.1-0.6); MONO % 2.9 % (1.0-6.0); RBC 4.63 10^6/uL (3.5-6.1); RED CELL DISTRIBUTION WIDTH 14.1 % (11.5-14.5); WHITE BLOOD COUNT 11.4 10^3/ul (4.5-11.0)
[2017-07-31 12:47] LABS: INR 1.03 (0.93-1.08); PARTIAL THROMBOPLASTIN TIME 33.9 Seconds (25.1-36.5); PROTHROMBIN TIME 11.9 SECONDS (9.4-12.5)
[2017-07-31 12:51] LABS: CALCIUM 9.6 mg/dL (8.4-10.5)
[2017-07-31] MEDS ORDERED: Midazolam 2 MG/2 ML VIAL ONE (14:37)
[2017-07-31] MEDS ORDERED: Lidocaine 1% Inj (20ml) ONE (14:38)
[2017-07-31] MEDS ORDERED: Oxycodone/Acetaminophen 5/325 mg Tab PO PRN (15:11)
[2017-07-31] MEDS ORDERED: Sodium Chloride 0.45% 1,000 ML IV SCH (15:15)
[2017-07-31 16:21] VITALS: BP 141/73; PULSE 69; RESP 18; TEMP 97.6; O2SAT 95
--- NOTE | 2017-07-31 16:21 | CT ---
PROCEDURE: CT guided left renal cortex biopsy. HISTORY: Proteinuria. Renal insufficiency. Evaluate for glomerulonephritis. PHYSICIAN(S): Vidal Jameson MD. TECHNIQUE: The relative risks and indications of the procedure were explained to the patient and consent obtained. The patient was placed prone on the CT scanner and preliminary images through the kidneys obtained. Conscious sedation and monitoring were provided throughout the procedure by a nurse. Limited noncontrast imaging of the kidneys was unremarkable.. A left posterior approach was selected and the area prepped and draped in the usual sterile fashion. 1% Xylocaine was used to anesthetize the skin and soft tissues. A 17-gauge guiding needle was advanced into the renal cortex laterally and inferiorly. Its position was confirmed with CT. Using coaxial technique, multiple core biopsies were obtained. The postprocedure images show no evidence of significant hemorrhage. IMPRESSION: 1. CT-guided left renal cortex biopsy as described above.
== END 2017-07-31 17:05 | disposition home or self-care (01) ==
LOC: SDS 11:57
PROVIDERS: ATTEND Radiology Vascular & Interventional Radiology
DX: N15.1 Renal and perinephric abscess (principal); N28.9 Disorder of kidney and ureter, unspecified; I10 Essential (primary) hypertension; J43.9 Emphysema, unspecified; Z88.5 Allergy status to narcotic agent; Z91.041 Radiographic dye allergy status
CPT/HCPCS: 36415; 50200; 77012; 80048; 85025; 85610; 85730; J2250; J2405; J3010; J7030

== ENCOUNTER 2018-07-21 09:00 | Outpatient (CLI) | payer MEDICARE | END 2018-07-21 09:01 | disposition home or self-care (01) | LOC: RAD 09:00 | DX: R13.10 Dysphagia, unspecified (principal); E06.9 Thyroiditis, unspecified; Z12.31 Encounter for screening mammogram for malignant neoplasm of breast ==

== ENCOUNTER 2018-08-11 05:31 | Outpatient (CLI) | payer MEDICARE | END 2018-08-11 05:32 | disposition home or self-care (01) | LOC: PET-BROA 05:31 | DX: R91.1 Solitary pulmonary nodule (principal) ==

== ENCOUNTER 2018-08-22 06:15 | Outpatient (CLI) | payer MEDICARE | END 2018-08-22 06:16 | disposition home or self-care (01) | LOC: CARDIO 06:15 ==

== ENCOUNTER 2018-08-26 07:01 | Day surgery (SDC) | payer MEDICARE ==
[2017-07-26 08:57] VITALS: BMI 23.3
[2018-08-26 07:18] LABS: EOS # 0.1 (0.0-0.7); EOS % 1.4 % (1.5-5.0); HEMOGLOBIN 13.3 g/dL (12.0-16.0); LYMPH # 3.7 (1.2-3.4); LYMPH % 37.1 % (22.0-35.0); MEAN CELL VOLUME 85.6 fl (80.0-105.0); MEAN CORPUSCULAR HEMOGLOBIN 27.4 pg (25.0-35.0); MEAN PLATELET VOLUME 8.7 fl (7.0-11.0); MONO # 0.3 (0.1-0.6); MONO % 3.2 % (1.0-6.0); RBC 4.86 10^6/uL (3.5-6.1); RED CELL DISTRIBUTION WIDTH 13.8 % (11.5-14.5); WHITE BLOOD COUNT 9.8 10^3/uL (4.5-11.0)
[2018-08-26 07:24] LABS: INR 1.04; PROTHROMBIN TIME 11.8 SECONDS (9.4-12.5)
[2018-08-26 07:27] LABS: CALCIUM 9.1 mg/dL (8.4-10.5)
[2018-08-26] MEDS ORDERED: Midazolam 2 MG/2 ML VIAL ONE (09:06)
[2018-08-26] MEDS ORDERED: Midazolam 2 MG/2 ML VIAL IVP ONE (09:55)
[2018-08-26] MEDS ORDERED: Sodium Chloride 0.45% 1,000 ML IV SCH (10:30)
--- NOTE | 2018-08-26 10:53 | CT ---
PROCEDURE: CT guided liver biopsy. HISTORY: Did CT-guided biopsy left upper lobe lung nodule smoker. Suspicious 10 mm left upper lobe nodule. Positive PET. PHYSICIAN(S): Vidal Jameson MD. TECHNIQUE: The relative risks and indications of the procedure were explained to the patient and consent obtained. The patient was placed right decubitus position on the CT scanner and preliminary images through the upper lungs obtained. Conscious sedation and monitoring were provided throughout the procedure by a nurse. There is a suspicious 10 mm noncalcified spiculated nodule in the left upper lobe posteriorly. A left posterior lateral approach was selected. Conscious sedation and monitoring were provided throughout the procedure by a nurse. 1 percent xylocaine was used to anesthetize the skin soft tissue and pleura. Multiple attempts at accurately placing the 19 gauge guiding needle unsuccessful due to the patient's persistent movement and coughing. The biopsy could not be completed. IMPRESSION: 1. Attempted CT-guided left upper lobe lung biopsy. It could not be successfully completed due to the patient's continuous coughing and movement. The nodule is suspicious radiographically. The patient should be evaluated for surgical resection
[2018-08-26 11:23] VITALS: RESP 18; TEMP 98.1; O2SAT 97
--- NOTE | 2018-08-26 12:27 | RAD ---
Date of service: 08/26/2018 HISTORY: attempted NATALI lung bx COMPARISON: 12/05/2016 TECHNIQUE: 1 view obtained. FINDINGS: LUNGS: Minimal bibasilar infiltrates. No evidence of pneumothorax PLEURA: No significant pleural effusion identified, no pneumothorax apparent. CARDIOVASCULAR: No aortic atherosclerotic calcification present. Normal cardiac size. No pulmonary vascular congestion. OSSEOUS STRUCTURES: No significant abnormalities. VISUALIZED UPPER ABDOMEN: Normal. OTHER FINDINGS: None. IMPRESSION: Minimal bibasilar infiltrates. No evidence of pneumothorax
[2018-08-26 13:32] VITALS: BP 122/77; PULSE 64
== END 2018-08-26 13:30 | disposition home or self-care (01) ==
LOC: SDS 07:01
PROVIDERS: ATTEND Radiology Vascular & Interventional Radiology
DX: R91.1 Solitary pulmonary nodule (principal); J43.9 Emphysema, unspecified; I25.10 Atherosclerotic heart disease of native coronary artery without angina pectoris; I10 Essential (primary) hypertension; I25.2 Old myocardial infarction; Z53.8 Procedure and treatment not carried out for other reasons
CPT/HCPCS: 32405; 36415; 71045; 77012; 80048; 85025; 85610; 85730; 99152; 99153; J2250; J2405; J3010; J7030

== ENCOUNTER → 2018-09-02 | Outpatient (CLI) | payer MEDICARE | LOC: PULMO 07:09 ==

== ENCOUNTER 2018-09-15 08:10 | Outpatient (CLI) | payer MEDICARE | END 2018-09-15 08:11 | disposition home or self-care (01) | LOC: PAT 08:10 ==